=== PATIENT | female | born 1960 | race Hispanic/Latino ===

== ENCOUNTER 2017-05-05 09:58 | Inpatient (IN) | payer MEDICAID ==
[2017-05-05] MEDS ORDERED: Vancomycin 1gm in NS 250ml 1 GM/250 ML BAG IVPB STA (10:46)
--- NOTE | 2017-05-05 10:57 | ED PDOC ---
Arrival/HPI <Alphonse Gentile - Last Filed: 05/05/17 11:17> <Vanessa Blake - Last Filed: 05/05/17 12:36> - General Chief Complaint: Lower Extremity Problem/Injury Time Seen by Provider: 05/05/17 10:25 - History of Present Illness Narrative History of Present Illness (Text): 05/05/17 10:50 This is a 56 year old female with a past medical history of lymphedema who comes in to [facility] with left leg swelling for approximately two days. The patient states that she was shaving her legs on Friday when she cut herself with the razor. She states afterwards that her leg began to swell and the that it began to "feel warm". She reports putting some Neosporyn on the cut but denies it improving the symptoms. The patient reports nausea, vomiting, lightheadedness, dizziness and diarrhea in relation to the swelling. The patient denies any chest pain, shortness of breath or any other complaints. (Alphonse Gentile) Past Medical History - Provider Review Nursing Documentation Reviewed: Yes - Infectious Disease Hx of Infectious Diseases: None - Reproductive Menopause: Yes - Hematological/Oncological Hx Blood Disorders: Yes Hx Cancer: Yes (CERVICAL CA) Hx Chemotherapy: Yes Hx Hepatitis C: Yes Other/Comment: RADIATION THERAPY, lymph edema to left leg - Integumentary Hx Dermatological Disorder: No - Musculoskeletal/Rheumatological Hx Musculoskeletal Disorders: Yes Other/Comment: SCOLIOSIS - Psychiatric Hx Substance Use: No - Surgical History Hx Musculoskeletal Surgery: Yes (BACK JORDY INSERTION) Other/Comment: CERVICAL SEED RADIATION IMPLANT - Anesthesia Hx Anesthesia: Yes Hx Anesthesia Reactions: Yes (DR ANABELA WEEKS) Hx Malignant Hyperthermia: No <Alphonse Gentile - Last Filed: 05/05/17 11:17> Family/Social History - Physician Review Nursing Documentation Reviewed: Yes Smoking Status: Never Smoked Hx Alcohol Use: No Hx Substance Use: No <Alphonse Gentile - Last Filed: 05/05/17 11:17> Family/Social History: No Known Family HX <Vanessa Blake - Last Filed: 05/05/17 12:36> Allergies/Home Meds <Alphonse Gentile - Last Filed: 08/14/17 11:17> <Vanessa Blake - Last Filed: 05/05/17 12:36> Allergies/Adverse Reactions: Allergies No Known Allergies Allergy (Verified 04/04/16 10:33) Home Medications: Home Meds Medication Instructions Recorded Confirmed No Known Home Med 04/04/16 05/05/17 Review of Systems - Physician Review All systems were reviewed & negative as marked: Yes - Review of Systems Constitutional: Fevers. absent: Fatigue, Weight Change Eyes: Normal. absent: Vision Changes, Eye Pain ENT: Normal. absent: Hearing Changes, Sore Throat, Rhinorrhea Respiratory: Normal. absent: SOB, Cough, Sputum Cardiovascular: Normal. absent: Chest Pain, Palpitations, Syncope Gastrointestinal: Diarrhea, Nausea, Vomiting. absent: Constipation, Hematochezia Skin: Other (Warm left leg reported). absent: Skin Lesions, Laceration, Abscess Neurological: Dizziness. absent: Headache, Facial Droop Endocrine: absent: Polyuria, Polydipsia Hemo/Lymphatic: Normal. absent: Easy Bleeding, Easy Bruising Psychiatric: Normal. absent: Anxiety, Depression <Alphonse Gentile - Last Filed: 05/05/17 11:17> Physical Exam Temperature: Afebrile Blood Pressure: Normal Pulse: Tachycardic Respiratory Rate: Normal Appearance: Positive for: Well-Appearing, Non-Toxic, Comfortable Pain Distress: None Mental Status: Positive for: Alert and Oriented X 3 - Systems Exam Head: Present: Atraumatic, Normocephalic Pupils: Present: PERRL Extroacular Muscles: Present: EOMI Conjunctiva: Present: Normal Mouth: Present: Moist Mucous Membranes, Dry Neck: Present: Normal Range of Motion. No: JVD, Lymphadenopathy Respiratory/Chest: Present: Clear to Auscultation, Good Air Exchange. No: Respiratory Distress, Accessory Muscle Use Cardiovascular: Present: Regular Rate and Rhythm, Normal S1, S2, Tachycardic. No: Murmurs, Bradycardic Abdomen: Present: Normal Bowel Sounds. No: Tenderness, Distention, Rebound, Guarding Back: Present: Normal Inspection Upper Extremity: Present: Normal Inspection. No: Cyanosis, Edema, Erythema Lower Extremity: Present: Edema (left leg up to the left groin area.), Swelling (left leg swollen), Temperature Abnormalties (left leg is warmer in comparison to the right). No: CALF TENDERNESS Neurological: Present: CN II-XII Intact, Speech Normal Skin: Present: Warm (on the left leg), Dry. No: Rashes Psychiatric: Present: Alert, Oriented x 3, Normal Insight <Alphonse Gentile - Last Filed: 05/05/17 11:17> Medical Decision Making <Alphonse Gentile - Last Filed: 05/05/17 11:17> <Vanessa Blake - Last Filed: 05/05/17 12:36> ED Course and Treatment: 05/05/17 11:05 Patient came into [facility] complaining of left leg swelling and warmth for two days. Labs were ordered including blood dx, cbc w/diff, cmp, and u/s of left lower extremity. Patient will be re-evaluated once lab work returns. Patient was given 1gm Vancomycin. Patient PMD is Dr. Mishra. Patient is to be admitted for inpatient treatment. (Alphonse Gentile) 05/05/17 11:18 In agreement with resident note, which includes further HPI details. Patient was seen and evaluated with resident, came up with plan and treatment together. Leg has significant warmth and erythema, consistent with limb threatening cellulitis. DVT study negative. Spoke to hospitalist, Dr. Cornejo, who covers for Dr. Mishra and admit to med/sx for IV abx for cellulitis. (Vanessa Blake) - Lab Interpretations Lab Results: 05/05/17 11:28 05/05/17 11:28 Lab Results 05/05/17 11:28: Sodium 136, Potassium 4.1, Chloride 102, Carbon Dioxide 25, Anion Gap 13, BUN 22 H, Creatinine 0.7, Est GFR ( Amer) > 60, Est GFR ( Non-Af Amer) > 60, Random Glucose 72, Calcium 8.9, Total Bilirubin 1.2, AST 28, ALT 26, Alkaline Phosphatase 57, Total Protein 7.1, Albumin 3.9, Globulin 3.2, Albumin/Globulin Ratio 1.2 05/05/17 11:28: WBC 10.0, RBC 4.80, Hgb 14.8, Hct 41.6, MCV 86.7, MCH 30.8, MCHC 35.6, RDW 13.7, Plt Count 166, MPV 10.8, Gran % 94.6 H, Lymph % (Auto) 2.6 L, [place] % (Auto) 2.8, Eos % (Auto) 0.0 L, Baso % (Auto) 0.0, Gran # 9.47 H, Lymph # 0.3 L, [place] # 0.3, Eos # 0.0, Baso # 0.00 - RAD Interpretation Radiology Orders: 05/05/17 10:49 DUPLEX LOWER EXTRM VEIN LEFT [US] Stat - Medication Orders Current Medication Orders: Sodium Chloride (Sodium Chloride 0.9%) 1,000 mls @ 999 mls/hr IV .Q1H1M STA Stop: 05/05/17 13:28 Discontinued Medications Vancomycin HCl (Vancomycin 1gm) 1 gm in 250 mls @ 167 mls/hr IVPB STAT STA PRN Reason: Protocol Stop: 05/05/17 12:15 Last Admin: 05/05/17 11:27 Dose: 167 mls/hr - PA / [employer] / Resident Statement / has reviewed & agrees with the documentation as recorded. / has examined the patient and agrees with the treatment plan. <Alphonse Gentile - Last Filed: 05/05/17 11:17> - Scribe Statement The provider has reviewed the documentation as recorded by the Scribe <Vanessa Blake - Last Filed: 05/05/17 12:36> - Scribe Statement 05/05/2017 Caitie Felipe Provider Scribe Attestation: All medical record entries made by the Scribe were at my direction and personally dictated by me. I have reviewed the chart and agree that the record accurately reflects my personal performance of the history, physical exam, medical decision making, and the department course for this patient. I have also personally directed, reviewed, and agree with the discharge instructions and disposition. (Vanessa Blake) Disposition/Present on Arrival - Present on Arrival Any Indicators Present on Arrival: No History of DVT/PE: No History of Uncontrolled Diabetes: No Urinary Catheter: No History of Decub. Ulcer: No History Surgical Site Infection Following: None - Disposition Have Diagnosis and Disposition been Completed?: Yes Disposition Time: 10:50 Patient Plan: Admission <Alphonse Gentile - Last Filed: 05/05/17 11:17> - Present on Arrival Any Indicators Present on Arrival: No - Disposition Have Diagnosis and Disposition been Completed?: Yes Patient Plan: Admission <Vanessa Blake - Last Filed: 05/05/17 12:36> - Disposition Diagnosis: Cellulitis Disposition: Transfer [facility] Patient Problems: Current Active Problems Problem Status Onset Cellulitis Acute Condition: FAIR Discharge Instructions (ExitCare): Cellulitis (ED) Referrals: Arias Mishra MD [Primary Care Provider] - Follow up with primary Forms: Orate (Amharic)
[2017-05-05 11:31] LABS: GRAN # 9.47 (1.4-6.5); GRAN % 94.6 % (50.0-68.0); HEMOGLOBIN 14.8 g/dL (12.0-16.0); LYMPH # 0.3 (1.2-3.4); LYMPH % 2.6 % (22.0-35.0); MEAN CELL VOLUME 86.7 fl (80.0-105.0); MEAN CORPUSCULAR HEMOGLOBIN 30.8 pg (25.0-35.0); MEAN CORPUSCULAR HGB CONC 35.6 g/dl (31.0-37.0); MEAN PLATELET VOLUME 10.8 fl (7.0-11.0); MONO # 0.3 (0.1-0.6); MONO % 2.8 % (1.0-6.0); PLATELET COUNT 166 10^3/uL (120.0-450.0); RED CELL DISTRIBUTION WIDTH 13.7 % (11.5-14.5)
[2017-05-05 11:44] LABS: ALB/GLOB RATIO 1.2 (1.1-1.8); ALBUMIN 3.9 g/dL (3.0-4.8); ALT/SGPT 26 U/L (7-56); AST/SGOT 28 U/L (15-39); BLOOD UREA NITROGEN 22 mg/dL (7-21); CALCIUM 8.9 mg/dL (8.4-10.5); GFR AFRICAN-AMERICAN > 60; GFR NON-AFRICAN AMERICAN > 60
[2017-05-05] MEDS ORDERED: Sodium Chloride 0.9% 1,000 ML IV STA (12:28)
[2017-05-05] MEDS: Vancomycin 1gm in NS 250ml 1 GM/250 ML BAG IVPB SCH (13:53)
--- NOTE | 2017-05-05 15:26 | CP.PCM.HP ---
<WANDA QUISPE - Last Filed: 05/05/17 15:47> History of Present Illness - History of Present Illness History of Present Illness: CC: LLE swelling, pain, erythema Pt is a 56 year old female with a known history of cervical CA treated 5 years ago and chronic LLE lymphedema, who reports 2 day history of redness, pain, and warmth to the entire left leg. Pt states that 4 days ago, she cut her leg in 3 places while shaving, and initially applied neosporin, however, yesterday she noticed the onset of her current complaints. Pt also c/o associated numbness/ tingling secondary to lymphedema of the LLE. Pt states that he LLE edema has been even worse in the past, but without pain and erythema. Yesterday, she took a dose of Motrin but was concerned when symptoms persisted today, prompting hospital visit. She states that she usually ambulates without difficulty, but has had increased pain to the LLE making it difficult to walk over the past 2 days. Patient reports history of cellulitis in the past. She additionally reports that yesterday, she had subjective fever, chills, nausea, 3 episodes of vomiting, and a loose bowel movement. Pt denied recent illness or sick contacts , dysuria, pyuria, back pain, constipation, abdominal pain, CP, or SOB. PMHx: Cervical CA 5 years ago treated with chemotherapy & radiation, hepatitis C. Denies DM, HTN, hypercholesterolemia PSHx: Abdominal lymph node resection Medication: None Allergies: NKDA, seasonal Family history: DM, HTN, asthma Social: - former smoker (last smoked 12 years ago) - recovering alcoholic - no recreational drugs - decreased appetite x 2 days - unemployed - lives in [place] with her 2 children Present on Admission - Present on Admission Any Indicators Present on Admission: No Review of Systems - Review of Systems All systems: reviewed and no additional remarkable complaints except (12 point ROS negative other than what is stated in HPI) Past Patient History - Infectious Disease Hx of Infectious Diseases: None - Past Medical History & Family History Past Medical History?: Yes - Past Social History Smoking Status: Never Smoked - HEMATOLOGICAL/ONCOLOGICAL Hx Blood Disorders: Yes Hx Cancer: Yes (CERVICAL CA) Hx Chemotherapy: Yes Hx Hepatitis C: Yes Other/Comment: RADIATION THERAPY, lymph edema to left leg - INTEGUMENTARY Hx Dermatological Problems: No - MUSCULOSKELETAL/RHEUMATOLOGICAL Hx Musculoskeletal Disorders: Yes Other/Comment: SCOLIOSIS - PSYCHIATRIC Hx Substance Use: No - SURGICAL HISTORY Hx Musculoskeletal Surgery: Yes (BACK JORDY INSERTION) Other/Comment: CERVICAL SEED RADIATION IMPLANT - ANESTHESIA Hx Anesthesia: Yes Hx Anesthesia Reactions: Yes (DR PEÑALOZA AWARE) Hx Malignant Hyperthermia: No Meds Allergies/Adverse Reactions: Allergies Allergy/AdvReac Type Severity Reaction Status Date / Time No Known Allergies Allergy Verified 04/04/16 10:33 Physical Exam - Constitutional Appears: No Acute Distress - Head Exam Head Exam: ATRAUMATIC, NORMOCEPHALIC - Eye Exam Eye Exam: EOMI, PERRL - ENT Exam ENT Exam: Mucous Membranes Moist - Neck Exam Neck exam: Positive for: Full Rom. Negative for: Lymphadenopathy, Tenderness, Thyromegaly - Respiratory Exam Respiratory Exam: Clear to Auscultation Bilateral. absent: Rales, Rhonchi, Wheezes - Cardiovascular Exam Cardiovascular Exam: RRR. absent: Diastolic murmur, Gallop, Rubs, Systolic Murmur - GI/Abdominal Exam GI & Abdominal Exam: Soft. absent: Distended, Firm, Guarding, Rebound, Rigid, Tenderness - Extremities Exam Extremities exam: Positive for: full ROM, pedal edema (Edema present in entire left leg from inguinal region to foot. 2+/4), tenderness (minor tenderness throughout left LE, with erythema and palpable hyperthermia of LLE), pedal pulses present (faint left DP pulse) Additional comments: 1 mm lesion on LLE, pt states from shaving - Neurological Exam Neurological exam: Alert, CN II-XII Intact, Oriented x3 - Psychiatric Exam Psychiatric exam: Normal Affect - Skin Skin Exam: Dry, Erythema, Warm Results - Vital Signs Recent Vital Signs: Last Vital Signs Temp 98.7 F 05/05/17 10:11 Pulse 88 05/05/17 13:57 Resp 18 05/05/17 13:57 BP 122/88 05/05/17 13:57 Pulse Ox 98 05/05/17 13:57 - Labs Result Diagrams: 05/05/17 11:28 05/05/17 11:28 Assessment & Plan - Assessment and Plan (Free Text) Assessment: 56 yo female with PMHx of cervical CA treated with chemo and radiation and chronic LLE lymphedema will be admitted for evaluation and treatment for LLE cellulitis. Plan: 1. Cellulitis, LLE - IV Cefepime and Vancomycin - Zofran for nausea - Motrin for pain - Monitor wbc - Elevate affected extremity - Consider ID consult if symptoms do not improve 2. GI PPx - Pepcid Pt was seen and discussed in detail with Dr. Rothman. <Chris Rothman - Last Filed: 05/05/17 16:54> Results - Vital Signs Recent Vital Signs: Last Vital Signs Temp 101.1 F H 05/05/17 16:04 Pulse 68 05/05/17 16:04 Resp 18 05/05/17 16:04 BP 87/46 L 05/05/17 16:04 Pulse Ox 98 05/05/17 13:57 - Labs Result Diagrams: 05/05/17 11:28 05/05/17 11:28 Attending/Attestation - Attestation I have personally seen and examined this patient.: Yes I have fully participated in the care of the patient.: Yes I have reviewed all pertinent clinical information: Yes Notes (Text): 05/05/17 16:52 attending note; Patient seen and examined with resident. Patient is a 56 year old female with a known history of cervical CA treated 5 years ago and chronic LLE lymphedema, hepatitis C treated is Admitted with left lower extremity Cellulitis. continue IV vancomycin and cefepime. monitor for clinical improvement. Elevate the left lower extremity. chronic lymphedema; ultrasound is negative for DVT. upon discharge the patient will follow-with PMD Dr. Mishra.
[2017-05-05] MEDS: Cefepime IV 2 gm in NS 2 GM/100 ML BAG IVPB SCH ×2 (16:44→22:07)
[2017-05-05 16:56] VITALS: BMI 32.9
[2017-05-05] MEDS ORDERED: Pneumococcal 23-Valent Vaccine IM ONE (16:56)
--- NOTE | 2017-05-05 18:46 | US ---
PROCEDURE: Left lower extremity venous US HISTORY: Leg pain and swelling. Evaluate for DVT. PHYSICIAN(S): Otis Ortiz MD. TECHNIQUE: Duplex sonography and color-flow Doppler with graded compression were used to evaluate the deep venous system of the left lower extremity. The tibial veins were not adequately visualized due to edema and body habitus FINDINGS: The visualized deep venous system of the left lower extremity is sonographically normal and compressible. Normal wave forms and augmentation are seen. There is no sonographic evidence for deep venous thrombosis in the visualized segments of the left lower extremity. IMPRESSION: 1. No sonographic evidence for deep venous thrombosis in the visualized segments of the left lower extremity. 2. Limited study.
[2017-05-06] MEDS: Vancomycin 1gm in NS 250ml 1 GM/250 ML BAG IVPB SCH ×2 (05:00→13:30)
[2017-05-06 07:41] LABS: HEMOGLOBIN 11.9 g/dL (12.0-16.0); MEAN CELL VOLUME 86.6 fl (80.0-105.0); MEAN CORPUSCULAR HEMOGLOBIN 29.5 pg (25.0-35.0); MEAN PLATELET VOLUME 10.9 fl (7.0-11.0); RBC 4.04 10^6/uL (3.5-6.1); RED CELL DISTRIBUTION WIDTH 13.9 % (11.5-14.5); WHITE BLOOD COUNT 7.1 10^3/ul (4.5-11.0)
[2017-05-06 07:58] LABS: ALB/GLOB RATIO 1.1 (1.1-1.8); ALT/SGPT 25 U/L (7-56); AST/SGOT 21 U/L (15-39); BLOOD UREA NITROGEN 19 mg/dL (7-21); CALCIUM 8.3 mg/dL (8.4-10.5); GFR AFRICAN-AMERICAN > 60; GFR NON-AFRICAN AMERICAN > 60; MAGNESIUM 1.8 mg/dL (1.7-2.2)
[2017-05-06] MEDS ORDERED: Potassium Chloride 20 mEq ER Tab PO STA (08:54)
[2017-05-06] MEDS: Cefepime IV 2 gm in NS 2 GM/100 ML BAG IVPB SCH ×2 (10:38→22:01)
[2017-05-06] MEDS: Potassium & Sodium Phosphate PO SCH ×2 (10:39→18:02)
--- NOTE | 2017-05-06 11:39 | CP.PCM.CON ---
History of Present Illness - History of Present Illness History of Present Illness: 56 year old female with PMH of cervical cancer S/P chemotherapy and radiation, chronic left lower extremity lymphedema, history of hepatitis C came in to [facility] complaining of increasing left lower extremity pain and swelling, with difficulty ambulating. She does not recall traumatizing her left leg. She denies animal contacts, no insect bites, no walking barefoot on soil, no soaking her feet in water. She also denies fever or chills, no nausea or vomiting, no chest pain, no SOB, no headache or dizziness, no dysuria, no diarrhea. Infectious Diseases consult is requested to further evaluate and manage. CC: LLE swelling, pain, erythema Pt is a 56 year old female with a known history of cervical CA treated 5 years ago and chronic LLE lymphedema, who reports 2 day history of redness, pain, and warmth to the entire left leg. Pt states that 4 days ago, she cut her leg in 3 places while shaving, and initially applied neosporin, however, yesterday she noticed the onset of her current complaints. Pt also c/o associated numbness/ tingling secondary to lymphedema of the LLE. Pt states that he LLE edema has been even worse in the past, but without pain and erythema. Yesterday, she took a dose of Motrin but was concerned when symptoms persisted today, prompting hospital visit. She states that she usually ambulates without difficulty, but has had increased pain to the LLE making it difficult to walk over the past 2 days. Patient reports history of cellulitis in the past. She additionally reports that yesterday, she had subjective fever, chills, nausea, 3 episodes of vomiting, and a loose bowel movement. Pt denied recent illness or sick contacts , dysuria, pyuria, back pain, constipation, abdominal pain, CP, or SOB. PMHx: Cervical CA 5 years ago treated with chemotherapy & radiation, hepatitis C. Denies DM, HTN, hypercholesterolemia PSHx: Abdominal lymph node resection Medication: None Allergies: NKDA, seasonal Family history: DM, HTN, asthma Social: - former smoker (last smoked 12 years ago) - recovering alcoholic - no recreational drugs - decreased appetite x 2 days - unemployed - lives in [place] with her 2 children Review of Systems - Review of Systems All systems: reviewed and no additional remarkable complaints except (as per HPI ) Past Patient History - Infectious Disease Hx of Infectious Diseases: None - Past Medical History & Family History Past Medical History?: Yes - Past Social History Smoking Status: Never Smoked - CARDIAC Hx Peripheral Edema: Yes (lle +4 pitting) - HEMATOLOGICAL/ONCOLOGICAL Hx Blood Disorders: Yes Hx Cancer: Yes (CERVICAL CA dx 02/2012) Hx Chemotherapy: Yes Hx Hepatitis C: Yes Other/Comment: had regular and high dose radiation for cervical ca, developed lymphadema to lle 12/2012 - INTEGUMENTARY Hx Dermatological Problems: No Other/Comment: redness warmth +4 edema from left groin down entire leg and foot pt c/o nicked herself shaving her legs 3x's went to [place] with her children the next day did not wrap leg, cellulitis since yesterday 05/04/17, skin tag to bottom left ft, small 0.5cm dry red wound r knee - MUSCULOSKELETAL/RHEUMATOLOGICAL Hx Musculoskeletal Disorders: Yes (can't bend hands all the way) Hx Falls: No Other/Comment: SCOLIOSIS - GASTROINTESTINAL Hx Gastrointestinal Disorders: Yes (obese) - PSYCHIATRIC Hx Substance Use: No - SURGICAL HISTORY Hx Musculoskeletal Surgery: Yes (BACK JORDY INSERTION) Other/Comment: CERVICAL SEED RADIATION IMPLANT pt denies seed implant, back sx with jordy insertion for scoliosis - ANESTHESIA Hx Anesthesia: Yes Hx Anesthesia Reactions: Yes (DR PEÑALOZA AWARE) Hx Malignant Hyperthermia: No Meds Allergies/Adverse Reactions: Allergies Allergy/AdvReac Type Severity Reaction Status Date / Time No Known Allergies Allergy Verified 04/04/16 10:33 - Medications Medications: Current Medications Famotidine (Pepcid) 40 mg PO HS KALPANA Cefepime HCl (Maxipime 2gm) 2 gm in 100 mls @ 100 mls/hr IVPB Q12 KALPANA PRN Reason: Protocol Stop: 05/10/17 13:46 Last Admin: 05/06/17 10:38 Dose: 100 mls/hr Vancomycin HCl (Vancomycin 1gm) 1 gm in 250 mls @ 167 mls/hr IVPB Q12H KALPANA PRN Reason: Protocol Last Admin: 05/06/17 05:00 Dose: 167 mls/hr Ibuprofen (Motrin Tab) 400 mg PO Q6H PRN PRN Reason: Pain, Mild (1-3) Last Admin: 05/06/17 05:04 Dose: 400 mg Ondansetron HCl (Zofran Inj) 4 mg IVP Q6H PRN PRN Reason: Nausea/Vomiting Last Admin: 05/05/17 18:25 Dose: 4 mg Potassium Phos/Sodium Phos (Neutra-Phos) 1 pkt PO ACTID KALPANA Stop: 05/07/17 00:01 Last Admin: 05/06/17 10:39 Dose: 1 pkt Physical Exam - Constitutional Appears: Non-toxic, No Acute Distress - Head Exam Head Exam: NORMAL INSPECTION - ENT Exam ENT Exam: Mucous Membranes Moist - Neck Exam Neck exam: Negative for: Lymphadenopathy, Meningismus - Respiratory Exam Respiratory Exam: Decreased Breath Sounds - Cardiovascular Exam Cardiovascular Exam: +S1, +S2 - GI/Abdominal Exam GI & Abdominal Exam: Soft. absent: Tenderness - Extremities Exam Additional comments: left lower extremity swelling with some anterior erythema and tenderness Results - Vital Signs Recent Vital Signs: Last Vital Signs Temp 99.6 F 05/06/17 06:00 Pulse 89 05/06/17 06:00 Resp 20 05/06/17 06:00 BP 97/48 L 05/06/17 06:00 Pulse Ox 94 L 05/06/17 06:00 - Labs Result Diagrams: 05/06/17 07:00 05/06/17 07:00 Labs: Laboratory Results - last 24 hr 05/06/17 05/06/17 07:00 07:00 WBC 7.1 D RBC 4.04 Hgb 11.9 L D Hct 35.0 L MCV 86.6 MCH 29.5 MCHC 34.0 RDW 13.9 Plt Count 135 MPV 10.9 Sodium 136 Potassium 2.9 L* D Chloride 105 Carbon Dioxide 23 Anion Gap 11 BUN 19 Creatinine 0.7 Est GFR ( Amer) > 60 Est GFR (Non-Af Amer) > 60 Random Glucose 97 Calcium 8.3 L Phosphorus 1.8 L Magnesium 1.8 Total Bilirubin 0.8 AST 21 ALT 25 Alkaline Phosphatase 68 Total Protein 5.8 Albumin 3.0 Globulin 2.8 Albumin/Globulin Ratio 1.1 Assessment & Plan - Assessment and Plan (Free Text) Plan: Assessment Left lower extremity non-purulent cellulitis in a patient with chronic lymphedema cervical cancer S/P chemotherapy and radiation chronic left lower extremity lymphedema history of hepatitis C Plan Patient started on Vancomycin and Cefepime; doppler U/S did not show DVT will monitor clinical response
--- NOTE | 2017-05-06 15:01 | CP.PCM.PN ---
<WANDA QUISPE - Last Filed: 05/06/17 15:12> Subjective - Date & Time of Evaluation Date of Evaluation: 05/06/17 Time of Evaluation: 14:55 - Subjective Subjective: Medicine Progress Note: Pt seen and examined at bedside. Pt denies any acute overnight events. Pt states that edema is about the same in LLE, but erythema and LLE hyperthermia has improved. Minor tenderness with palpation to LLE. But ambulates in room with minimal discomfort. Pt denies CP, SOB, n/v/d, fever, chills, abdominal pain , or vertigo. Objective - Vital Signs/Intake and Output Vital Signs (last 24 hours): Temp Pulse Resp BP Pulse Ox 99.6 F 89 20 97/48 L 94 L 05/06/17 06:00 05/06/17 06:00 05/06/17 06:00 05/06/17 06:00 05/06/17 06:00 Intake and Output: 05/06/17 05/06/17 06:59 18:59 Intake Total 840 240 Balance 840 240 - Medications Medications: Current Medications Famotidine (Pepcid) 40 mg PO HS [facility] Cefepime HCl (Maxipime 2gm) 2 gm in 100 mls @ 100 mls/hr IVPB Q12 [facility] PRN Reason: Protocol Stop: 05/10/17 13:46 Last Admin: 05/06/17 10:38 Dose: 100 mls/hr Vancomycin HCl (Vancomycin 1gm) 1 gm in 250 mls @ 167 mls/hr IVPB Q12H [facility] PRN Reason: Protocol Last Admin: 05/06/17 05:00 Dose: 167 mls/hr Ibuprofen (Motrin Tab) 400 mg PO Q6H PRN PRN Reason: Pain, Mild (1-3) Last Admin: 05/06/17 05:04 Dose: 400 mg Ondansetron HCl (Zofran Inj) 4 mg IVP Q6H PRN PRN Reason: Nausea/Vomiting Last Admin: 05/05/17 18:25 Dose: 4 mg Potassium Phos/Sodium Phos (Neutra-Phos) 1 pkt PO ACTID [facility] Stop: 05/07/17 00:01 Last Admin: 05/06/17 10:39 Dose: 1 pkt - Labs Labs: 05/06/17 07:00 05/06/17 07:00 - Constitutional Appears: No Acute Distress - Head Exam Head Exam: ATRAUMATIC, NORMOCEPHALIC - Eye Exam Eye Exam: EOMI, PERRL - ENT Exam ENT Exam: Mucous Membranes Moist - Neck Exam Neck Exam: Full ROM. absent: Lymphadenopathy, Tenderness, Thyromegaly - Respiratory Exam Respiratory Exam: Clear to Ausculation Bilateral. absent: Rales, Rhonchi, Wheezes - Cardiovascular Exam Cardiovascular Exam: RRR. absent: Gallop, Rubs, Murmur - GI/Abdominal Exam GI & Abdominal Exam: Soft. absent: Distended, Guarding, Tenderness, Rebound - Extremities Exam Extremities Exam: Full ROM, Tenderness Additional comments: LLE: 2+/4 edema, decreased erythema, decreased hyperthermia from inguinal region to foot, TTP minimal. Pedal pulses present b/l - Neurological Exam Neurological Exam: Alert, Awake, Oriented x3 - Psychiatric Exam Psychiatric exam: Normal Affect, Normal Mood - Skin Skin Exam: Dry, Erythema, Intact, Warm Assessment and Plan - Assessment and Plan (Free Text) Assessment: 56 yo female with PMHx of cervical CA treated with chemo and radiation and chronic LLE lymphedema will be admitted for evaluation and treatment for LLE cellulitis. Plan: 1. Cellulitis, LLE - ID consulted, recs appreciated - Blood cultures negative after 24 hrs - Cont Cefepime and Vancomycin - Zofran for nausea - Motrin for pain - Monitor wbc - Elevate affected extremity 2. Hypokalemia - K 2.9 - K-dur 40 mEq PO - Monitor K, replete as necessary 3. Hypophosphatemia - Phos 1.8 - Neutraphos with meals - Monitor Phos, replete as necessary 4. Chronic Lymphedema - US negative for DVT 5. GI/DVT PPx - Pepcid - Ambulate Pt was seen and discussed in detail with Dr. Rothman. <Chris Rothman - Last Filed: 05/07/17 07:57> Objective - Vital Signs/Intake and Output Vital Signs (last 24 hours): Temp Pulse Resp BP Pulse Ox 100.4 F H 87 20 110/57 L 96 05/06/17 16:30 05/06/17 16:30 05/06/17 16:30 05/06/17 16:30 05/06/17 16:30 Intake and Output: 05/07/17 05/07/17 06:59 18:59 Intake Total 1020 Balance 1020 - Medications Medications: Current Medications Famotidine (Pepcid) 40 mg PO HS [facility]NA Last Admin: 05/06/17 22:19 Dose: 40 mg Cefepime HCl (Maxipime 2gm) 2 gm in 100 mls @ 100 mls/hr IVPB Q12 [facility] PRN Reason: Protocol Stop: 05/10/17 13:46 Last Admin: 05/06/17 22:01 Dose: 100 mls/hr Vancomycin HCl (Vancomycin 1gm) 1 gm in 250 mls @ 167 mls/hr IVPB Q12H [facility] PRN Reason: Protocol Last Admin: 05/07/17 00:51 Dose: 167 mls/hr Ibuprofen (Motrin Tab) 400 mg PO Q6H PRN PRN Reason: Pain, Mild (1-3) Last Admin: 05/06/17 05:04 Dose: 400 mg Ondansetron HCl (Zofran Inj) 4 mg IVP Q6H PRN PRN Reason: Nausea/Vomiting Last Admin: 05/05/17 18:25 Dose: 4 mg Potassium Phos/Sodium Phos (Neutra-Phos) 1 pkt PO ACTID [facility] Stop: 05/08/17 00:01 Last Admin: 05/06/17 18:02 Dose: Not Given - Labs Labs: 05/07/17 07:00 05/06/17 15:55 Attending/Attestation - Attestation I have personally seen and examined this patient.: Yes I have fully participated in the care of the patient.: Yes I have reviewed all pertinent clinical information, including history, physical exam and plan: Yes Notes (Text): 05/07/17 07:56 attending note; Patient seen and examined with resident. Patient is a 56 year old female with a known history of cervical CA treated 5 years ago and chronic LLE lymphedema, hepatitis C treated is Admitted with left lower extremity Cellulitis. on IV vancomycin and cefepime. monitor for clinical improvement. Elevate the left lower extremity. ID evaluation requested. chronic lymphedema; ultrasound is negative for DVT. upon discharge the patient will follow-with PMD Dr. Mishra.
[2017-05-06 16:08] LABS: BLOOD UREA NITROGEN 18 mg/dL (7-21); CALCIUM 8.6 mg/dL (8.4-10.5); GFR AFRICAN-AMERICAN > 60; GFR NON-AFRICAN AMERICAN > 60
[2017-05-07] MEDS: Vancomycin 1gm in NS 250ml 1 GM/250 ML BAG IVPB SCH (00:51)
[2017-05-07 07:42] LABS: HEMOGLOBIN 11.2 g/dL (12.0-16.0); MEAN CELL VOLUME 86.9 fl (80.0-105.0); MEAN CORPUSCULAR HEMOGLOBIN 29.2 pg (25.0-35.0); MEAN CORPUSCULAR HGB CONC 33.6 g/dl (31.0-37.0); MEAN PLATELET VOLUME 10.5 fl (7.0-11.0); RBC 3.83 10^6/uL (3.5-6.1); WHITE BLOOD COUNT 4.4 10^3/ul (4.5-11.0)
[2017-05-07 08:05] LABS: ALBUMIN 2.8 g/dL (3.0-4.8); ALT/SGPT 24 U/L (7-56); AST/SGOT 17 U/L (15-39); BLOOD UREA NITROGEN 14 mg/dL (7-21); CALCIUM 8.1 mg/dL (8.4-10.5); GFR AFRICAN-AMERICAN > 60; GFR NON-AFRICAN AMERICAN > 60
[2017-05-07] MEDS: Potassium & Sodium Phosphate PO SCH ×2 (08:20→13:37)
[2017-05-07 09:09] VITALS: BP 110/61; PULSE 75; RESP 19; TEMP 99.8; O2SAT 94
[2017-05-07] MEDS: Cefepime IV 2 gm in NS 2 GM/100 ML BAG IVPB SCH (09:58)
--- NOTE | 2017-05-07 13:06 | CP.PCM.DIS ---
<WANDA QUISPE - Last Filed: 05/07/17 12:59> Provider - Provider Date of Admission: 05/05/17 12:27 Attending physician: Chris Rothman MD Primary care physician: Arias Mishra MD Consults: Infectious Disease: Alona Time Spent in preparation of Discharge (in minutes): 45 Hospital Course - Lab Results Lab Results: Micro Results 05/05/17 13:40 Blood-Venous Blood Culture - Preliminary NO GROWTH AFTER 24 HOURS 05/05/17 13:40 Blood-Venous Blood Culture - Preliminary NO GROWTH AFTER 24 HOURS Most Recent Lab Values WBC 4.4 10^3/ul (4.5-11.0) L D 05/07/17 07:00 RBC 3.83 10^6/uL (3.5-6.1) 05/07/17 07:00 Hgb 11.2 g/dL (12.0-16.0) L 05/07/17 07:00 Hct 33.3 % (36.0-48.0) L 05/07/17 07:00 MCV 86.9 fl (80.0-105.0) 05/07/17 07:00 MCH 29.2 pg (25.0-35.0) 05/07/17 07:00 MCHC 33.6 g/dl (31.0-37.0) 05/07/17 07:00 RDW 14.0 % (11.5-14.5) 05/07/17 07:00 Plt Count 126 10^3/uL (120.0-450.0) 05/07/17 07:00 MPV 10.5 fl (7.0-11.0) 05/07/17 07:00 Gran % 94.6 % (50.0-68.0) H 05/05/17 11:28 Lymph % (Auto) 2.6 % (22.0-35.0) L 05/05/17 11:28 [place] % (Auto) 2.8 % (1.0-6.0) 05/05/17 11:28 Eos % (Auto) 0.0 % (1.5-5.0) L 05/05/17 11:28 Baso % (Auto) 0.0 % (0.0-3.0) 05/05/17 11:28 Gran # 9.47 (1.4-6.5) H 05/05/17 11:28 Lymph # 0.3 (1.2-3.4) L 05/05/17 11:28 [place] # 0.3 (0.1-0.6) 05/05/17 11:28 Eos # 0.0 (0.0-0.7) 05/05/17 11:28 Baso # 0.00 K/mm3 (0.0-2.0) 05/05/17 11:28 Sodium 138 mmol/L (132-148) 05/07/17 07:00 Potassium 3.7 mmol/L (3.6-5.0) 05/07/17 07:00 Chloride 107 mmol/L (98-107) 05/07/17 07:00 Carbon Dioxide 24 mmol/L (21-33) 05/07/17 07:00 Anion Gap 11 (10-20) 05/07/17 07:00 BUN 14 mg/dL (7-21) 05/07/17 07:00 Creatinine 0.6 mg/dL (0.5-1.4) 05/07/17 07:00 Est GFR ( Amer) > 60 05/07/17 07:00 Est GFR (Non-Af Amer) > 60 05/07/17 07:00 Random Glucose 84 mg/dL (70-110) 05/07/17 07:00 Calcium 8.1 mg/dL (8.4-10.5) L 05/07/17 07:00 Phosphorus 2.2 mg/dL (2.5-4.5) L 05/07/17 07:00 Magnesium 1.8 mg/dL (1.7-2.2) 05/06/17 07:00 Total Bilirubin 0.5 mg/dL (0.2-1.3) 05/07/17 07:00 AST 17 U/L (15-39) 05/07/17 07:00 ALT 24 U/L (7-56) 05/07/17 07:00 Alkaline Phosphatase 58 U/L (38-133) 05/07/17 07:00 Total Protein 5.7 g/dL (5.8-8.3) L 05/07/17 07:00 Albumin 2.8 g/dL (3.0-4.8) L 05/07/17 07:00 Globulin 2.9 gm/dL 05/07/17 07:00 Albumin/Globulin Ratio 1.0 (1.1-1.8) L 05/07/17 07:00 - Hospital Course Hospital Course: Pt is a 56 year old female with a known history of cervical CA treated 5 years ago and chronic LLE lymphedema, who reports 2 day history of redness, pain, and warmth to the entire left leg. Pt states that 4 days ago, she cut her leg in 3 places while shaving, and initially applied neosporin, however, yesterday she noticed the onset of her current complaints. Pt also c/o associated numbness/ tingling secondary to lymphedema of the LLE. Pt states that he LLE edema has been even worse in the past, but without pain and erythema. Yesterday, she took a dose of Motrin but was concerned when symptoms persisted today, prompting hospital visit. She states that she usually ambulates without difficulty, but has had increased pain to the LLE making it difficult to walk over the past 2 days. Patient reports history of cellulitis in the past. She additionally reports that yesterday, she had subjective fever, chills, nausea, 3 episodes of vomiting, and a loose bowel movement. In the ED, labs and imaging were obtained. Labs were unremarkable. Ultrasound of the LLE was negative for DVT. Pt was admitted for IV abx for LLE cellulitis. ID was consulted. Antibiotic recommendations were appreciated. During hospital stay, pt became hypokalemic and hypophosphatemic. K and phos were repleted, which resolved her electrolyte abnormalities. Today, erythema, pain and heat from LLE had greatly improved. ID recommended that pt be discharged home on PO doxycycline and augmentin. Pt denied CP, SOB, n/v/d, abdominal pain, fevers, chills, and vertigo. Discharge Exam - Head Exam Head Exam: ATRAUMATIC, NORMOCEPHALIC - Eye Exam Eye Exam: EOMI, PERRL Pupil Exam: PERRL - ENT Exam ENT Exam: Mucous Membranes Moist - Neck Exam Neck exam: Full Rom - Respiratory Exam Respiratory Exam: Clear to PA & Lateral. absent: Rales, Rhonchi, Wheezes - Cardiovascular Exam Cardiovascular Exam: RRR. absent: Diastolic murmur, Gallop, Rubs, Systolic Murmur - GI/Abdominal Exam GI & Abdominal Exam: Soft. absent: Distended, Guarding, Rebound, Tenderness - Extremities Exam Additional comments: LLE edema 2+/4. Erythema and hyperthermia improved - Neurological Exam Neurological exam: Alert, CN II-XII Intact, Oriented x3 - Psychiatric Exam Psychiatric exam: Normal Affect - Skin Skin Exam: Erythema, Intact, Warm Discharge Plan - Discharge Medications Prescriptions: Amoxicillin/Clavulanate [Augmentin 875 MG-125 MG] 1 tab PO BID #14 tab Doxycycline Monohydrate 100 mg PO BID #14 tablet - Follow Up Plan Condition: FAIR Disposition: HOME/ ROUTINE Instructions: Cellulitis (DC), Cellulitis (GEN) Additional Instructions: - Take Medications as prescribed - Follow up with PMD Dr. Mishra within 2-3 days - Ambulate as tolerated - Keep area of lesion clean - Ok to shower - Avoid swimming pool until leg redness and heat ceases - Return to ED if condition worsens Referrals: Arias Mishra MD [Primary Care Provider] - <Chris Rothman - Last Filed: 05/07/17 15:03> Provider - Provider Date of Admission: 05/05/17 12:27 Attending physician: Chris Rothman MD Primary care physician: Arias Mishra MD Hospital Course - Lab Results Lab Results: Micro Results 05/05/17 13:40 Blood-Venous Blood Culture - Preliminary NO GROWTH AFTER 48 HOURS 05/05/17 13:40 Blood-Venous Blood Culture - Preliminary NO GROWTH AFTER 48 HOURS Most Recent Lab Values WBC 4.4 10^3/ul (4.5-11.0) L D 05/07/17 07:00 RBC 3.83 10^6/uL (3.5-6.1) 05/07/17 07:00 Hgb 11.2 g/dL (12.0-16.0) L 05/07/17 07:00 Hct 33.3 % (36.0-48.0) L 05/07/17 07:00 MCV 86.9 fl (80.0-105.0) 05/07/17 07:00 MCH 29.2 pg (25.0-35.0) 05/07/17 07:00 MCHC 33.6 g/dl (31.0-37.0) 05/07/17 07:00 RDW 14.0 % (11.5-14.5) 05/07/17 07:00 Plt Count 126 10^3/uL (120.0-450.0) 05/07/17 07:00 MPV 10.5 fl (7.0-11.0) 05/07/17 07:00 Gran % 94.6 % (50.0-68.0) H 05/05/17 11:28 Lymph % (Auto) 2.6 % (22.0-35.0) L 05/05/17 11:28 [place] % (Auto) 2.8 % (1.0-6.0) 05/05/17 11:28 Eos % (Auto) 0.0 % (1.5-5.0) L 05/05/17 11:28 Baso % (Auto) 0.0 % (0.0-3.0) 05/05/17 11:28 Gran # 9.47 (1.4-6.5) H 05/05/17 11:28 Lymph # 0.3 (1.2-3.4) L 05/05/17 11:28 [place] # 0.3 (0.1-0.6) 05/05/17 11:28 Eos # 0.0 (0.0-0.7) 05/05/17 11:28 Baso # 0.00 K/mm3 (0.0-2.0) 05/05/17 11:28 Sodium 138 mmol/L (132-148) 05/07/17 07:00 Potassium 3.7 mmol/L (3.6-5.0) 05/07/17 07:00 Chloride 107 mmol/L (98-107) 05/07/17 07:00 Carbon Dioxide 24 mmol/L (21-33) 05/07/17 07:00 Anion Gap 11 (10-20) 05/07/17 07:00 BUN 14 mg/dL (7-21) 05/07/17 07:00 Creatinine 0.6 mg/dL (0.5-1.4) 05/07/17 07:00 Est GFR ( Amer) > 60 05/07/17 07:00 Est GFR (Non-Af Amer) > 60 05/07/17 07:00 Random Glucose 84 mg/dL (70-110) 05/07/17 07:00 Calcium 8.1 mg/dL (8.4-10.5) L 05/07/17 07:00 Phosphorus 2.2 mg/dL (2.5-4.5) L 05/07/17 07:00 Magnesium 1.8 mg/dL (1.7-2.2) 05/06/17 07:00 Total Bilirubin 0.5 mg/dL (0.2-1.3) 05/07/17 07:00 AST 17 U/L (15-39) 05/07/17 07:00 ALT 24 U/L (7-56) 05/07/17 07:00 Alkaline Phosphatase 58 U/L (38-133) 05/07/17 07:00 Total Protein 5.7 g/dL (5.8-8.3) L 05/07/17 07:00 Albumin 2.8 g/dL (3.0-4.8) L 05/07/17 07:00 Globulin 2.9 gm/dL 05/07/17 07:00 Albumin/Globulin Ratio 1.0 (1.1-1.8) L 05/07/17 07:00 Attending/Attestation - Attestation I have personally seen and examined this patient.: Yes I have fully participated in the care of the patient.: Yes I have reviewed all pertinent clinical information, including history, physical exam and plan: Yes Notes (Text): 05/07/17 15:02 attending note; Patient seen and examined with resident. Patient is a 56 year old female with a known history of cervical CA treated 5 years ago and chronic LLE lymphedema, hepatitis C treated is Admitted with left lower extremity Cellulitis. Treated with IV vancomycin and cefepime. Elevate the left lower extremity. ID evaluation appreciated. Improving slowly. Discharge home with doxy and augmentin. chronic lymphedema; ultrasound is negative for DVT. upon discharge the patient will follow-with PMD Dr. Mishra.
--- NOTE | 2017-05-07 18:46 | CP.PCM.PN ---
Subjective - Date & Time of Evaluation Date of Evaluation: 05/07/17 Time of Evaluation: 11:00 - Subjective Subjective: Less leg swelling, no fevers overnight. Objective - Vital Signs/Intake and Output Vital Signs (last 24 hours): Temp Pulse Resp BP Pulse Ox 99.8 F H 75 19 110/61 94 L 05/07/17 06:00 05/07/17 06:00 05/07/17 06:00 05/07/17 06:00 05/07/17 06:00 Intake and Output: 05/07/17 05/07/17 06:59 18:59 Intake Total 1020 Balance 1020 - Medications Medications: Current Medications Famotidine (Pepcid) 40 mg PO HS [facility] Last Admin: 05/06/17 22:19 Dose: 40 mg Cefepime HCl (Maxipime 2gm) 2 gm in 100 mls @ 100 mls/hr IVPB Q12 [facility] PRN Reason: Protocol Stop: 05/10/17 13:46 Last Admin: 05/07/17 09:58 Dose: 100 mls/hr Vancomycin HCl (Vancomycin 1gm) 1 gm in 250 mls @ 167 mls/hr IVPB Q12H [facility] PRN Reason: Protocol Last Admin: 05/07/17 00:51 Dose: 167 mls/hr Ibuprofen (Motrin Tab) 400 mg PO Q6H PRN PRN Reason: Pain, Mild (1-3) Last Admin: 05/06/17 05:04 Dose: 400 mg Ondansetron HCl (Zofran Inj) 4 mg IVP Q6H PRN PRN Reason: Nausea/Vomiting Last Admin: 05/05/17 18:25 Dose: 4 mg Potassium Phos/Sodium Phos (Neutra-Phos) 1 pkt PO ACTID [facility] Stop: 05/08/17 00:01 Last Admin: 05/07/17 08:20 Dose: 1 pkt - Labs Labs: 05/07/17 07:00 05/07/17 07:00 - Constitutional Appears: Non-toxic, No Acute Distress - Head Exam Head Exam: NORMAL INSPECTION - ENT Exam ENT Exam: Mucous Membranes Moist - Neck Exam Neck Exam: absent: Meningismus - Respiratory Exam Respiratory Exam: Decreased Breath Sounds - Cardiovascular Exam Cardiovascular Exam: +S1, +S2 - GI/Abdominal Exam GI & Abdominal Exam: Soft. absent: Tenderness - Extremities Exam Additional comments: decreasing left lower extremity edema Assessment and Plan - Assessment and Plan (Free Text) Plan: Assessment Left lower extremity non-purulent cellulitis in a patient with chronic lymphedema, clinically improving cervical cancer S/P chemotherapy and radiation chronic left lower extremity lymphedema history of hepatitis C Plan on Vancomycin and Cefepime day 2; doppler U/S did not show DVT; blood cx are negative - can change to PO Doxycycline and Augmentin for another 5-7 days
== END 2017-05-07 14:19 | disposition home or self-care (01) | DRG 277 ==
LOC: ED 09:58 → ERH 12:27 → 3RSO 14:17
PROVIDERS: ADMIT Internal Medicine; ATTEND Internal Medicine
DX: L03.116 Cellulitis of left lower limb (principal); E87.6 Hypokalemia; I89.0 Lymphedema, not elsewhere classified; E83.39 Other disorders of phosphorus metabolism; Z92.21 Personal history of antineoplastic chemotherapy; Z87.891 Personal history of nicotine dependence; Z86.19 Personal history of other infectious and parasitic diseases; Z85.41 Personal history of malignant neoplasm of cervix uteri

== ENCOUNTER 2017-07-02 20:30 | Emergency (ER) | payer MEDICAID ==
[2017-07-02 21:37] VITALS: RESP 18; TEMP 98.6; BMI 32.2
--- NOTE | 2017-07-02 21:50 | ED PDOC ---
Arrival/HPI - General Chief Complaint: Lower Extremity Problem/Injury Time Seen by Provider: 07/02/17 21:33 Historian: Patient - History of Present Illness Narrative History of Present Illness (Text): 07/02/17 21:49 Frida Calzada is a 56 year old female, whose past medical history includes cervical cancer, Hepatitis C, cellulitis, and chronic lymphedema, who presents to the Emergency department complaining of worsening left lower extremity swelling since this morning. Patient reports associated redness to the extremity. Patient denies any fever, chills, chest pain, shortness of breath, nausea, vomiting, diarrhea, urinary symptoms, back pain, neck pain, headache, dizziness, or any other complaints. Time/Duration: Other (this morning) Symptom Onset: Gradual Symptom Course: Unchanged Activities at Onset: Light Context: Home Past Medical History - Provider Review Nursing Documentation Reviewed: Yes - Infectious Disease Hx of Infectious Diseases: None - Cardiac Hx Peripheral Edema: Yes (lle +4 pitting) - Hematological/Oncological Hx Blood Disorders: Yes Hx Cancer: Yes (CERVICAL CA dx 02/2012) Hx Chemotherapy: Yes Hx Hepatitis C: Yes Other/Comment: had regular and high dose radiation for cervical ca, developed lymphadema to lle 12/2012 - Integumentary Hx Dermatological Disorder: No Other/Comment: redness warmth +4 edema from left groin down entire leg and foot pt c/o nicked herself shaving her legs 3x's went to [facility] with her children the next day did not wrap leg, cellulitis since yesterday 05/04/17, skin tag to bottom left ft, small 0.5cm dry red wound r knee - Musculoskeletal/Rheumatological Hx Musculoskeletal Disorders: Yes (can't bend hands all the way) Hx Falls: No Other/Comment: SCOLIOSIS - Gastrointestinal Hx Gastrointestinal Disorders: Yes (obese) - Psychiatric Hx Substance Use: No - Surgical History Hx Musculoskeletal Surgery: Yes (BACK JORDY INSERTION) Other/Comment: CERVICAL SEED RADIATION IMPLANT pt denies seed implant, back sx with jordy insertion for scoliosis - Anesthesia Hx Anesthesia: Yes Hx Anesthesia Reactions: Yes (DR PEÑALOZA AWARE) Hx Malignant Hyperthermia: No Family/Social History - Physician Review Nursing Documentation Reviewed: Yes Family/Social History: Unknown Family HX Smoking Status: Never Smoked Hx Alcohol Use: No Hx Substance Use: No Allergies/Home Meds Allergies/Adverse Reactions: Allergies acetaminophen [From Percocet] Adverse Reaction (Verified 07/02/17 21:34) VOMITING oxycodone [From Percocet] Adverse Reaction (Verified 07/02/17 21:34) VOMITING Review of Systems - Physician Review All systems were reviewed & negative as marked: Yes - Review of Systems Constitutional: Normal. absent: Fevers Eyes: Normal ENT: Normal Respiratory: Normal. absent: SOB, Cough Cardiovascular: Normal. absent: Chest Pain Gastrointestinal: Normal. absent: Abdominal Pain, Diarrhea, Nausea, Vomiting Genitourinary Female: Normal. absent: Dysuria, Frequency, Hematuria, Urine Output Changes Musculoskeletal: Normal. absent: Back Pain, Neck Pain Skin: Cellulitis (+left leg swelling and redness) Neurological: Normal. absent: Headache, Dizziness Endocrine: Normal Hemo/Lymphatic: Normal Psychiatric: Normal Physical Exam Vital Signs Reviewed: Yes Vital Signs Temp Pulse Resp BP Pulse Ox 07/02/17 23:44 75 18 125/82 100 07/02/17 21:35 98.6 F 86 18 117/65 96 Temperature: Afebrile Blood Pressure: Normal Pulse: Regular Respiratory Rate: Normal Appearance: Positive for: Well-Appearing, Non-Toxic, Comfortable Pain Distress: None Mental Status: Positive for: Alert and Oriented X 3 - Systems Exam Head: Present: Atraumatic, Normocephalic Pupils: Present: PERRL Extroacular Muscles: Present: EOMI Conjunctiva: Present: Normal Mouth: Present: Moist Mucous Membranes Neck: Present: Normal Range of Motion Respiratory/Chest: Present: Clear to Auscultation, Good Air Exchange. No: Respiratory Distress, Accessory Muscle Use Cardiovascular: Present: Regular Rate and Rhythm, Normal S1, S2. No: Murmurs Abdomen: Present: Normal Bowel Sounds. No: Tenderness, Distention, Peritoneal Signs Back: Present: Normal Inspection Upper Extremity: Present: Normal Inspection. No: Cyanosis, Edema Lower Extremity: Present: NORMAL PULSES, Normal ROM, Erythema (Erythema to left lower extremity), Temperature Abnormalties (Warmth to left lower extremity), Neurovascularly Intact, Capillary Refill < 2 s. No: Edema, CALF TENDERNESS Neurological: Present: GCS=15, CN II-XII Intact, Speech Normal Skin: Present: Warm, Dry, Normal Color. No: Rashes Psychiatric: Present: Alert, Oriented x 3, Normal Insight, Normal Concentration Medical Decision Making ED Course and Treatment: 07/02/17 21:49 Impression: 56 year old female complaining of left lower extremity swelling and redness since this morning. Differential Diagnosis included but are not limited to: cellulitis Plan: -- Cleocin -- Reassess and disposition Prior Visits: Notes and results from previous visits were reviewed. On 05/05/2017, pt was seen in the Emergency department for left leg swelling. Pt was admitted to the hospital for further evaluation. Progress Notes: 07/02/17 23:45 On reevaluation the patient feels better and is in no acute distress. I have discussed the results and plan with the patient, who expresses understanding. Patient given the opportunity to ask question, all questions were answered and there is agreement with the plan to discharge the patient home with prescription for Cleocin. Patient is stable for discharge. Patient was instructed to follow up with physician/clinic in 1-2 days or return if symptoms persist/worsen or new concerning symptoms arise. - Medication Orders Current Medication Orders: Discontinued Medications Clindamycin Phosphate 600 mg/ (Sodium Chloride) 54 mls @ 108 mls/hr IVPB STAT STA PRN Reason: Protocol Stop: 07/02/17 22:18 Last Admin: 07/02/17 22:13 Dose: 108 mls/hr eMAR Start Stop Document 07/02/17 22:13 YP (Rec: 07/02/17 22:13 YP [id number]) Intravenous Solution Start Date 07/02/17 Start Time 22:13 End Date 07/02/17 End time 22:43 Total Infusion Time 30 - Scribe Statement The provider has reviewed the documentation as recorded by the Veda Figueroa Provider Scribe Attestation: All medical record entries made by the Scribmagdalena were at my direction and personally dictated by me. I have reviewed the chart and agree that the record accurately reflects my personal performance of the history, physical exam, medical decision making, and the department course for this patient. I have also personally directed, reviewed, and agree with the discharge instructions and disposition. Disposition/Present on Arrival - Present on Arrival History of DVT/PE: No History of Uncontrolled Diabetes: No Urinary Catheter: No History of Decub. Ulcer: No History Surgical Site Infection Following: None - Disposition Diagnosis: Cellulitis Disposition: HOME/ ROUTINE Disposition Time: 23:45 Discharge Instructions (ExitCare): Cellulitis (ED) Prescriptions: Clindamycin [Cleocin] 300 mg PO QID #40 cap Forms: [employer] ([place])
[2017-07-02 23:46] VITALS: BP 125/82; PULSE 75; O2SAT 100
== END 2017-07-02 23:46 | disposition home or self-care (01) ==
LOC: ED 20:30
DX: L03.116 Cellulitis of left lower limb (principal)

== ENCOUNTER 2017-07-04 10:03 | Inpatient (IN) | payer MEDICAID ==
[2017-07-04 10:10] VITALS: BMI 33.3
[2017-07-04 10:54] LABS: BASO # 0.01 K/mm3 (0.0-2.0); BASO % 0.3 % (0.0-3.0); GRAN # 2.04 (1.4-6.5); GRAN % 67.5 % (50.0-68.0); HEMATOCRIT 41.3 % (36.0-48.0); LYMPH # 0.6 (1.2-3.4); LYMPH % 19.9 % (22.0-35.0); MEAN CELL VOLUME 87.7 fl (80.0-105.0); MEAN CORPUSCULAR HEMOGLOBIN 29.9 pg (25.0-35.0); MEAN CORPUSCULAR HGB CONC 34.1 g/dl (31.0-37.0); MONO # 0.3 (0.1-0.6); MONO % 11.3 % (1.0-6.0); RED CELL DISTRIBUTION WIDTH 13.4 % (11.5-14.5)
--- NOTE | 2017-07-04 11:07 | ED PDOC ---
Arrival/HPI - General Chief Complaint: Lower Extremity Problem/Injury Time Seen by Provider: 07/04/17 10:12 Historian: Patient - History of Present Illness Narrative History of Present Illness (Text): 07/04/17 11:03 56-year-old female with history of lymphedema presents today for reevaluation of left lower leg erythema. Patient states she was seen in the emergency room 2 days ago for redness and swelling to the left leg. Patient states she was discharged home on clindamycin. Patient states she presents today because she promised the doctor 2 days ago that she would return for reevaluation. Patient states she is feeling much better, but there is still redness. States the swelling has decreased. Patient states she is taking the antibiotics as prescribed. She denies fevers or chills. Past Medical History - Provider Review Nursing Documentation Reviewed: Yes - Travel History Have you recently traveled outside [place] w/in the past 3 mons?: No - Infectious Disease Hx of Infectious Diseases: None - Cardiac Hx Peripheral Edema: Yes (lle +4 pitting) - Hematological/Oncological Hx Blood Disorders: Yes Hx Cancer: Yes (CERVICAL CA dx 02/2012) Hx Chemotherapy: Yes Hx Hepatitis C: Yes Other/Comment: had regular and high dose radiation for cervical ca, developed lymphadema to e 12/2012 - Integumentary Hx Dermatological Disorder: No Other/Comment: redness warmth +4 edema from left groin down entire leg and foot pt c/o nicked herself shaving her legs 3x's went to [facility] with her children the next day did not wrap leg, cellulitis since yesterday 05/04/17, skin tag to bottom left ft, small 0.5cm dry red wound r knee - Musculoskeletal/Rheumatological Hx Musculoskeletal Disorders: Yes (can't bend hands all the way) Hx Falls: No Other/Comment: SCOLIOSIS - Gastrointestinal Hx Gastrointestinal Disorders: Yes (obese) - Psychiatric Hx Substance Use: No - Surgical History Hx Musculoskeletal Surgery: Yes (BACK JORDY INSERTION) Other/Comment: CERVICAL SEED RADIATION IMPLANT pt denies seed implant, back sx with jordy insertion for scoliosis - Anesthesia Hx Anesthesia: Yes Hx Anesthesia Reactions: Yes (DR PEÑALOZA AWARE) Hx Malignant Hyperthermia: No Family/Social History - Physician Review Nursing Documentation Reviewed: Yes Family/Social History: Unknown Family HX Smoking Status: Never Smoked Hx Alcohol Use: No Hx Substance Use: No Allergies/Home Meds Allergies/Adverse Reactions: Allergies acetaminophen [From Percocet] Adverse Reaction (Verified 07/02/17 21:34) VOMITING oxycodone [From Percocet] Adverse Reaction (Verified 07/02/17 21:34) VOMITING Review of Systems - Review of Systems Constitutional: absent: Fatigue, Fevers Respiratory: absent: SOB, Cough Cardiovascular: absent: Chest Pain, Palpitations Gastrointestinal: absent: Abdominal Pain, Nausea, Vomiting Genitourinary Female: absent: Dysuria, Frequency Musculoskeletal: Arthralgias Skin: Cellulitis Neurological: absent: Headache, Dizziness Psychiatric: absent: Anxiety, Depression Physical Exam Vital Signs Reviewed: Yes Vital Signs Temp Pulse Resp BP Pulse Ox 07/04/17 12:04 68 18 110/68 98 07/04/17 11:00 71 18 106/65 98 07/04/17 10:14 97.7 F 76 18 104/64 98 Temperature: Afebrile Blood Pressure: Normal Pulse: Regular Respiratory Rate: Normal Appearance: Positive for: Well-Appearing, Non-Toxic, Comfortable Pain Distress: None Mental Status: Positive for: Alert and Oriented X 3 - Systems Exam Head: Present: Atraumatic Mouth: Present: Moist Mucous Membranes Neck: Present: Normal Range of Motion Respiratory/Chest: Present: Clear to Auscultation, Good Air Exchange. No: Respiratory Distress, Accessory Muscle Use Cardiovascular: Present: Regular Rate and Rhythm, Normal S1, S2. No: Murmurs Abdomen: No: Tenderness Back: Present: Normal Inspection Lower Extremity: Present: NORMAL PULSES, Normal ROM, Swelling (+ lymphedema to left lower leg with erythema; + warmth. full rom. ), Erythema, Neurovascularly Intact, Capillary Refill < 2 s. No: CALF TENDERNESS, Tenderness, Temperature Abnormalties Neurological: Present: GCS=15 Skin: Present: Warm, Dry, Normal Color. No: Rashes Psychiatric: Present: Alert, Oriented x 3 Medical Decision Making ED Course and Treatment: 07/04/17 11:13 pt non toxic well appearing; no distress. stable vitals. cbc wnl cmp wnl blood cultures pending venous duplex left leg; no dvt, non visualized calf veins. vanco and zosyn ordered IV. case discussed with dr. Riki waggoner. covering for dr. garcia; accepts admission to med/surg for cellulitis of left leg with failure of outpatient abx. impression; cellulitis admit to med/surg - Lab Interpretations Lab Results: 07/04/17 10:46 07/04/17 10:46 Lab Results 07/04/17 10:46: WBC 3.0 L D, RBC 4.71, Hgb 14.1 D, Hct 41.3, MCV 87.7, MCH 29.9 , MCHC 34.1, RDW 13.4, Plt Count 172, MPV 10.0, Gran % 67.5, Lymph % (Auto) 19.9 L, Kay % (Auto) 11.3 H, Eos % (Auto) 1.0 L, Baso % (Auto) 0.3, Gran # 2.04 , Lymph # 0.6 L, Kay # 0.3, Eos # 0.0, Baso # 0.01 07/04/17 10:46: Sodium 141, Potassium 4.9, Chloride 105, Carbon Dioxide 29, Anion Gap 12, BUN 14, Creatinine 0.6 L, Est GFR ( Amer) > 60, Est GFR ( Non-Af Amer) > 60, Random Glucose 96, Calcium 8.9, Total Bilirubin 0.7, AST 27, ALT 27, Alkaline Phosphatase 62, Total Protein 7.2, Albumin 3.9, Globulin 3.2, Albumin/Globulin Ratio 1.2 - RAD Interpretation Radiology Orders: 07/04/17 10:26 DUPLEX LOWER EXTRM VEIN LEFT [US] Stat Disposition/Present on Arrival - Present on Arrival Any Indicators Present on Arrival: No History of DVT/PE: No History of Uncontrolled Diabetes: No Urinary Catheter: No History of Decub. Ulcer: No History Surgical Site Infection Following: None - Disposition Have Diagnosis and Disposition been Completed?: Yes Diagnosis: Cellulitis Disposition: HOSPITALIZED Disposition Time: 11:58 Patient Plan: Discharge Patient Problems: Current Active Problems Problem Status Onset Cellulitis Acute Condition: GOOD Discharge Instructions (ExitCare): Cellulitis (ED) Additional Instructions: Continue antibiotics as prescribed Follow-up with primary care physician within the next 2 days Return immediately if symptoms worsen persist or if new symptoms develop, and high fevers, increasing pain, increasing redness, increasing swelling or if any other concerning symptoms develop Referrals: Spenser Garcia MD [Primary Care Provider] - Follow up with primary Forms: Cherry Bird (Moroccan)
[2017-07-04 11:09] LABS: ALB/GLOB RATIO 1.2 (1.1-1.8); ALKALINE PHOSPHATASE 62 U/L (38-126); ALT/SGPT 27 U/L (7-56); AST/SGOT 27 U/L (14-36); BILIRUBIN,TOTAL 0.7 mg/dL (0.2-1.3); BLOOD UREA NITROGEN 14 mg/dL (7-21); CALCIUM 8.9 mg/dL (8.4-10.5); CARBON DIOXIDE 29 mmol/L (21-33); CHLORIDE 105 mmol/L (98-107); GFR AFRICAN-AMERICAN > 60; GLUCOSE,RANDOM 96 mg/dL (70-110); POTASSIUM 4.9 mmol/L (3.6-5.0); SODIUM 141 mmol/L (132-148); TOTAL PROTEIN 7.2 g/dL (5.8-8.3)
[2017-07-04] MEDS ORDERED: Piperacillin/Tazobact 3.375 gm 100 ML IVPB STA (12:15)
[2017-07-04] MEDS ORDERED: Vancomycin 1gm in NS 250ml 1 GM/250 ML BAG IVPB STA (12:15)
--- NOTE | 2017-07-04 14:15 | CP.PCM.HP ---
<Gerber Segura - Last Filed: 07/04/17 13:58> History of Present Illness - History of Present Illness History of Present Illness: CC: LLE cellulitis 56F PMHx of cervical CA, pelvic lymph nodes removal, treated 5 years ago subsequent cronic LLE lymphedema, came into the hospital 2 days ago for LLE cellulitits. During that time patient was febrile and leg was erythematous and painful to touch. Patient was told to come back to the ER in 2 days for follow up. Patient now shows up and states she has been afebrile, pain and erythema has gone down significantly. Pt then recieved a doppler ultrasound and returning to her bed she noticed rashes localized specifically to the LLE only. Patient was admitted for LLE cellulitis and started on IV antibiotics. PMHx: Cervical CA 2011 treated with chemotherapy & radiation; chronic LLE lymphedema; hepatitis C. PSHx: Abdominal lymph node resection, back surgery from scoliosis at age 16 Meds: None ALL: Percocet & Anesthesia (gets severe vomiting), seasonal SocialHx: - former smoker (quit 12 years ago) - recovering alcoholic - lives in [place] with her 2 children PMD: Dr. Mishra Onc: Dr. Mak- [facility] GI: Dr. Cruz Present on Admission - Present on Admission Any Indicators Present on Admission: No Review of Systems - Review of Systems All systems: reviewed and no additional remarkable complaints except - Constitutional Constitutional: As Per HPI Past Patient History - Infectious Disease Hx of Infectious Diseases: None - Past Medical History & Family History Past Medical History?: Yes - Past Social History Smoking Status: Never Smoked - CARDIAC Hx Peripheral Edema: Yes (lle +4 pitting) - HEMATOLOGICAL/ONCOLOGICAL Hx Blood Disorders: Yes Hx Cancer: Yes (CERVICAL CA dx 02/2012) Hx Chemotherapy: Yes Hx Hepatitis C: Yes Other/Comment: had regular and high dose radiation for cervical ca, developed lymphadema to lle 12/2012 - INTEGUMENTARY Hx Dermatological Problems: No Other/Comment: redness warmth +4 edema from left groin down entire leg and foot pt c/o nicked herself shaving her legs 3x's went to [facility] with her children the next day did not wrap leg, cellulitis since yesterday 05/04/17, skin tag to bottom left ft, small 0.5cm dry red wound r knee - MUSCULOSKELETAL/RHEUMATOLOGICAL Hx Musculoskeletal Disorders: Yes (can't bend hands all the way) Hx Falls: No Other/Comment: SCOLIOSIS - GASTROINTESTINAL Hx Gastrointestinal Disorders: Yes (obese) - PSYCHIATRIC Hx Substance Use: No - SURGICAL HISTORY Hx Musculoskeletal Surgery: Yes (BACK JORDY INSERTION) Other/Comment: CERVICAL SEED RADIATION IMPLANT pt denies seed implant, back sx with jordy insertion for scoliosis - ANESTHESIA Hx Anesthesia: Yes Hx Anesthesia Reactions: Yes (DR PEÑALOZA AWARE) Hx Malignant Hyperthermia: No Meds Allergies/Adverse Reactions: Allergies Allergy/AdvReac Type Severity Reaction Status Date / Time acetaminophen [From Percocet] AdvReac VOMITING Verified 07/02/17 21:34 oxycodone [From Percocet] AdvReac VOMITING Verified 07/02/17 21:34 Physical Exam - Constitutional Appears: Non-toxic, No Acute Distress - Head Exam Head Exam: ATRAUMATIC - Eye Exam Eye Exam: EOMI. absent: Scleral icterus - ENT Exam ENT Exam: Mucous Membranes Moist - Respiratory Exam Respiratory Exam: NORMAL BREATHING PATTERN. absent: Accessory Muscle Use, Respiratory Distress - GI/Abdominal Exam GI & Abdominal Exam: Soft. absent: Firm, Guarding, Rigid, Tenderness - Extremities Exam Extremities exam: Positive for: pedal edema. Negative for: calf tenderness Additional comments: LLE Lymphedema. Warm to touch. No pain, induration, demarcated erythema, red macules that are subsiding during examination - Back Exam Back exam: absent: CVA tenderness (L), CVA tenderness (R) - Neurological Exam Neurological exam: Alert, Oriented x3 - Skin Skin Exam: Warm Results - Vital Signs Recent Vital Signs: Last Vital Signs Temp 97.7 F 07/04/17 10:14 Pulse 68 07/04/17 12:04 Resp 18 07/04/17 12:04 BP 110/68 07/04/17 12:04 Pulse Ox 98 07/04/17 12:04 - Labs Result Diagrams: 07/04/17 10:46 07/04/17 10:46 Assessment & Plan - Assessment and Plan (Free Text) Assessment: 56F pmhx cervical cancer, chronic lymphedema, recurrent episode of cellulitis currently improving with antibiotics. LLE cellulitis/Lymphedema Chronic lymphedema, compression stockings during the day wrap at night Start on IV Abx CTX and Vanc C/s Infectious disease due to recurrent episodes of cellulitis serial exams monitor for size of erythema and induration f/u final read of doppler h/o Hepatitis C Pt being seen by Dr. Cruz. Next appointment in September PPX Heparin/PTX Gerber Segura PGY1 <Tanvi Munoz - Last Filed: 07/04/17 15:03> Results - Vital Signs Recent Vital Signs: Last Vital Signs Temp 97.7 F 07/04/17 10:14 Pulse 68 07/04/17 12:04 Resp 18 07/04/17 12:04 BP 110/68 07/04/17 12:04 Pulse Ox 98 07/04/17 12:04 - Labs Result Diagrams: 07/04/17 10:46 07/04/17 10:46 Attending/Attestation - Attestation I have personally seen and examined this patient.: Yes I have fully participated in the care of the patient.: Yes I have reviewed all pertinent clinical information: Yes Notes (Text): 07/04/17 14:54 56 year old female with past medical history of cervical cancer s/p chemo/ radiation, chronic lymphedema and hepatitis C who presented with recurrent cellulitis. Continue with iv antibiotics as above. ID evaluation is requested. Will follow up on LE doppler. Patient follows up with GI for history of hepatitis C. Tanvi Munoz MD Hospitalist.
[2017-07-04] MEDS ORDERED: Pneumococcal 23-Valent Vaccine IM ONE (15:39)
[2017-07-04] MEDS ORDERED: Influenza Vaccine 60 mcg/0.5 mL SYR (4YR UP) IM ONE (15:39)
[2017-07-04] MEDS: Pantoprazole 20 mg EC Tab PO SCH (17:32)
[2017-07-04] MEDS: Vancomycin 1gm in NS 250ml 1 GM/250 ML BAG IVPB SCH (22:06)
[2017-07-05] MEDS: Pantoprazole 20 mg EC Tab PO SCH ×2 (06:30→16:26)
[2017-07-05 07:16] LABS: HEMATOCRIT 38.4 % (36.0-48.0); MEAN CELL VOLUME 87.7 fl (80.0-105.0); MEAN CORPUSCULAR HEMOGLOBIN 29.2 pg (25.0-35.0); MEAN CORPUSCULAR HGB CONC 33.3 g/dl (31.0-37.0); MEAN PLATELET VOLUME 10.2 fl (7.0-11.0); RED CELL DISTRIBUTION WIDTH 13.6 % (11.5-14.5)
[2017-07-05 07:35] LABS: WHITE BLOOD COUNT 2.5 10^3/ul (4.5-11.0)
[2017-07-05 07:44] LABS: BLOOD UREA NITROGEN 14 mg/dL (7-21); CALCIUM 8.5 mg/dL (8.4-10.5); CARBON DIOXIDE 28 mmol/L (21-33); CHLORIDE 108 mmol/L (98-107); GFR AFRICAN-AMERICAN > 60; GLUCOSE,RANDOM 95 mg/dL (70-110); SODIUM 140 mmol/L (132-148)
--- NOTE | 2017-07-05 09:35 | US ---
PROCEDURE: Left lower extremity venous US HISTORY: Leg pain and swelling. Evaluate for DVT. PHYSICIAN(S): Otis Ortiz MD. TECHNIQUE: Duplex sonography and color-flow Doppler with graded compression were used to evaluate the deep venous system of the left lower extremity. FINDINGS: The visualized deep venous system of the left lower extremity is sonographically normal and compressible. Normal wave forms and augmentation are seen. There is no sonographic evidence for deep venous thrombosis in the visualized segments of the left lower extremity. IMPRESSION: 1. No sonographic evidence for deep venous thrombosis in the visualized segments of the left lower extremity.
[2017-07-05] MEDS: Vancomycin 1gm in NS 250ml 1 GM/250 ML BAG IVPB SCH ×2 (10:55→22:18)
--- NOTE | 2017-07-05 12:41 | CON ---
DATE: 07/05/2017 LOCATION: The patient is seen early this morning in room #365, bed #1. CHIEF COMPLAINT: Left leg redness x1 to 2 days' duration. HISTORY OF PRESENT ILLNESS: This is a 56-year-old female with a history of cervical cancer, is stage IV as per the patient, had chemotherapy and radiation, had pelvic lymph node that was removed and has had a left lower leg lymphedema and now admitted with a left erythema x1 to 2 days' duration and infectious disease consultation requested. REVIEW OF SYSTEMS: Reveals the patient has no fevers and no chills. No chest pain. No shortness of breath. No cough. No abdominal pain or diarrhea. PAST MEDICAL HISTORY: Significant for hepatitis C, scoliosis, cervical cancer of stage IV, pelvic and lymph node removal. The patient's cervical cancer was diagnosed in 02/2012. PAST SURGICAL HISTORY: Significant for back surgery. The patient also had colonoscopy in 03/2016 and upper endoscopy in 03/2016. ALLERGIES: INCLUDE OXYCODONE AND ACETAMINOPHEN. MEDICATIONS AT HOME: Include the patient to be on clindamycin. PHYSICAL EXAMINATION: GENERAL AND VITAL SIGNS: She is in bed, no acute distress with a temperature of 98, blood pressure is 112/50, respiratory rate of 18, heart rate was up to 76 in the emergency room and the patient's BMI is 33. EXAMINATION OF HEENT: Unremarkable. NECK: Supple. LUNGS: Decreased breath sounds. HEART EXAM: Normal S1 and S2. ABDOMINAL EXAMINATION: Soft, nontender. EXTREMITIES: Examination of left leg has lymphedema with erythema that is streaking up the left leg. LABORATORY EXAMINATION: Reveals the patient's white count is 3.0, hemoglobin of 14 and platelets of 172. Chemistries reveal a BUN of 14, creatinine of 0.6. Microbiology is pending. The patient had an ultrasound of lower extremity which is negative. ASSESSMENT AND PLAN: A 56-year-old obese female with a body mass index of 33 with a history of stage IV cervical cancer, diagnosed in 02/2012, has had chemotherapy and radiation and pelvic node removed with a chronic lymphedema of the left leg and history of scoliosis and history of hepatitis C, who is ALLERGIC TO OXYCODONE AND ACETAMINOPHEN and was admitted now with left leg cellulitis and currently on vancomycin and Rocephin. We will follow clinically. We will check on the culture results. We will continue the vancomycin and Rocephin. We will also order an human immunodeficiency virus test because of her age and hepatitis C positive and we will make further recommendations upon clinical response. Pascual Rice MD
--- NOTE | 2017-07-05 14:30 | CP.PCM.PN ---
<Alphonse Gentile - Last Filed: 07/05/17 14:34> Subjective - Date & Time of Evaluation Date of Evaluation: 07/05/17 Time of Evaluation: 07:27 - Subjective Subjective: Patient was seen and examined at bedside. Per nursing, no acute events occurred overnight. The patient denies any chest pain, shortness of breath, nausea, vomiting ,changes in vision, sore throat, abdominal pain, or any other complaints. Objective - Vital Signs/Intake and Output Vital Signs (last 24 hours): Temp Pulse Resp BP Pulse Ox 98.4 F 66 10 L 112/57 L 100 07/05/17 06:00 07/05/17 06:00 07/05/17 06:00 07/05/17 06:00 07/05/17 06:00 Intake and Output: 07/05/17 07/05/17 06:59 18:59 Intake Total 1380 240 Balance 1380 240 - Medications Medications: Current Medications Diphenhydramine HCl (Benadryl) 25 mg PO Q12 PRN PRN Reason: Allergy symptoms Heparin Sodium (Porcine) (Heparin) 5,000 units SC Q12 [facility] PRN Reason: Protocol Last Admin: 07/05/17 10:59 Dose: Not Given Ceftriaxone Sodium (Rocephin 1 Gram Ivpb) 1 gm in 100 mls @ 100 mls/hr IVPB DAILY [facility] PRN Reason: Protocol Vancomycin HCl (Vancomycin 1gm) 1 gm in 250 mls @ 167 mls/hr IVPB Q12H [facility] PRN Reason: Protocol Last Admin: 07/05/17 10:55 Dose: 167 mls/hr Pantoprazole Sodium (Protonix Ec Tab) 20 mg PO 0600,1600 [facility] Last Admin: 07/05/17 06:30 Dose: 20 mg - Labs Labs: 07/05/17 06:30 07/05/17 06:30 - Head Exam Head Exam: ATRAUMATIC, NORMAL INSPECTION, NORMOCEPHALIC - Eye Exam Eye Exam: EOMI, Normal appearance, PERRL. absent: Periorbital tenderness Pupil Exam: NORMAL ACCOMODATION, PERRL. absent: Irregular, Miosis, Unequal - ENT Exam ENT Exam: Mucous Membranes Moist, Normal Exam, Normal Oropharynx - Neck Exam Neck Exam: Full ROM, Normal Inspection. absent: Lymphadenopathy, Thyromegaly - Respiratory Exam Respiratory Exam: Clear to Ausculation Bilateral, NORMAL BREATHING PATTERN. absent: Accessory Muscle Use, Chest Wall Tenderness, Prolonged Expiratory Phase , Respiratory Distress - Cardiovascular Exam Cardiovascular Exam: REGULAR RHYTHM, RRR, +S1, +S2. absent: Gallop, Rubs - GI/Abdominal Exam GI & Abdominal Exam: Soft, Normal Bowel Sounds. absent: Rigid, Tenderness, Hyperactive Bowel Sounds - Extremities Exam Extremities Exam: Full ROM Additional comments: Left leg lymphedema present. - Back Exam Back Exam: NORMAL INSPECTION. absent: CVA tenderness (L), CVA tenderness (R), paraspinal tenderness - Neurological Exam Neurological Exam: Alert, Awake, CN II-XII Intact, Normal Gait, Oriented x3 - Psychiatric Exam Psychiatric exam: Normal Affect, Normal Mood - Skin Skin Exam: Dry, Intact Assessment and Plan - Assessment and Plan (Free Text) Assessment: 56F pmhx cervical cancer, chronic lymphedema, recurrent episode of cellulitis currently improving with antibiotics. Plan: LLE cellulitis/Lymphedema Chronic lymphedema, compression stockings during the day wrap at night Continue IV Vancomycin and Ceftriaxone. ID rec's appreciated. Following Final blood culture pending. F/u with rec's tomorrow. serial exams monitor for size of erythema and induration Doppler negative for DVT. h/o Hepatitis C Pt being seen by Dr. Cruz. Next appointment in September No intervention at this point. PPX Heparin/PTX <Tanvi Munoz - Last Filed: 07/05/17 19:00> Objective - Vital Signs/Intake and Output Vital Signs (last 24 hours): Temp Pulse Resp BP Pulse Ox 98.0 F 70 20 121/67 96 07/05/17 17:14 07/05/17 17:14 07/05/17 17:14 07/05/17 17:14 07/05/17 17:14 Intake and Output: 07/05/17 07/05/17 06:59 18:59 Intake Total 1380 240 Balance 1380 240 - Medications Medications: Current Medications Diphenhydramine HCl (Benadryl) 25 mg PO Q12 PRN PRN Reason: Allergy symptoms Heparin Sodium (Porcine) (Heparin) 5,000 units SC Q12 [facility] PRN Reason: Protocol Last Admin: 07/05/17 10:59 Dose: Not Given Ceftriaxone Sodium (Rocephin 1 Gram Ivpb) 1 gm in 100 mls @ 100 mls/hr IVPB DAILY [facility] PRN Reason: Protocol Vancomycin HCl (Vancomycin 1gm) 1 gm in 250 mls @ 167 mls/hr IVPB Q12H [facility] PRN Reason: Protocol Last Admin: 07/05/17 10:55 Dose: 167 mls/hr Pantoprazole Sodium (Protonix Ec Tab) 20 mg PO 0600,1600 [facility] Last Admin: 07/05/17 16:26 Dose: 20 mg - Labs Labs: 07/05/17 06:30 07/05/17 06:30 Attending/Attestation - Attestation I have personally seen and examined this patient.: Yes I have fully participated in the care of the patient.: Yes I have reviewed all pertinent clinical information, including history, physical exam and plan: Yes Notes (Text): 07/05/17 18:59 56 year old female with past medical history of cervical cancer s/p chemo/ radiation, chronic lymphedema and hepatitis C who presented with recurrent cellulitis. This is improving with iv antibiotics. ID evaluation was appreciated. LE doppler was negative. Cultures are so far negative to date. Patient follows up with GI for history of hepatitis C. Tanvi Munoz MD Hospitalist.
[2017-07-05 17:15] VITALS: RESP 20; TEMP 98
[2017-07-06] MEDS: cefTRIAXone 1 gm 1 GM/100 ML BAG IVPB SCH ×2 (05:10→11:01)
[2017-07-06] MEDS: Pantoprazole 20 mg EC Tab PO SCH (05:27)
[2017-07-06 07:20] VITALS: BP 117/69; PULSE 67; O2SAT 95
[2017-07-06 07:29] LABS: HEMATOCRIT 38.8 % (36.0-48.0); MEAN CORPUSCULAR HEMOGLOBIN 29.1 pg (25.0-35.0); MEAN CORPUSCULAR HGB CONC 33.5 g/dl (31.0-37.0); MEAN PLATELET VOLUME 10.3 fl (7.0-11.0); RED CELL DISTRIBUTION WIDTH 13.5 % (11.5-14.5)
[2017-07-06 07:32] LABS: WHITE BLOOD COUNT 2.6 10^3/ul (4.5-11.0)
[2017-07-06 07:33] LABS: BLOOD UREA NITROGEN 18 mg/dL (7-21); CALCIUM 8.7 mg/dL (8.4-10.5); CARBON DIOXIDE 27 mmol/L (21-33); CHLORIDE 107 mmol/L (95-110); GFR AFRICAN-AMERICAN > 60; GLUCOSE,RANDOM 90 mg/dL (70-110); POTASSIUM 4.7 mmol/L (3.6-5.0); SODIUM 140 mmol/L (132-148)
[2017-07-06] MEDS: Vancomycin 1gm in NS 250ml 1 GM/250 ML BAG IVPB SCH (11:10)
--- NOTE | 2017-07-06 12:32 | CP.PCM.DIS ---
<KrupaAuxier - Last Filed: 07/06/17 17:47> Provider - Provider Date of Admission: 07/04/17 12:15 Attending physician: Riki Gomez MD Primary care physician: Spenser Mishra MD Time Spent in preparation of Discharge (in minutes): 35 Hospital Course - Lab Results Lab Results: Most Recent Lab Values WBC 2.6 10^3/ul (4.5-11.0) L* 07/06/17 06:30 RBC 4.46 10^6/uL (3.5-6.1) 07/06/17 06:30 Hgb 13.0 g/dL (12.0-16.0) 07/06/17 06:30 Hct 38.8 % (36.0-48.0) 07/06/17 06:30 MCV 87.0 fl (80.0-105.0) 07/06/17 06:30 MCH 29.1 pg (25.0-35.0) 07/06/17 06:30 MCHC 33.5 g/dl (31.0-37.0) 07/06/17 06:30 RDW 13.5 % (11.5-14.5) 07/06/17 06:30 Plt Count 174 10^3/uL (120.0-450.0) 07/06/17 06:30 MPV 10.3 fl (7.0-11.0) 07/06/17 06:30 Gran % 67.5 % (50.0-68.0) 07/04/17 10:46 Lymph % (Auto) 19.9 % (22.0-35.0) L 07/04/17 10:46 [place] % (Auto) 11.3 % (1.0-6.0) H 07/04/17 10:46 Eos % (Auto) 1.0 % (1.5-5.0) L 07/04/17 10:46 Baso % (Auto) 0.3 % (0.0-3.0) 07/04/17 10:46 Gran # 2.04 (1.4-6.5) 07/04/17 10:46 Lymph # 0.6 (1.2-3.4) L 07/04/17 10:46 [place] # 0.3 (0.1-0.6) 07/04/17 10:46 Eos # 0.0 (0.0-0.7) 07/04/17 10:46 Baso # 0.01 K/mm3 (0.0-2.0) 07/04/17 10:46 Sodium 140 mmol/L (132-148) 07/06/17 06:30 Potassium 4.7 mmol/L (3.6-5.0) 07/06/17 06:30 Chloride 107 mmol/L (95-110) 07/06/17 06:30 Carbon Dioxide 27 mmol/L (21-33) 07/06/17 06:30 Anion Gap 11 (10-20) 07/06/17 06:30 BUN 18 mg/dL (7-21) 07/06/17 06:30 Creatinine 0.6 mg/dL (0.7-1.2) L 07/06/17 06:30 Est GFR ( Amer) > 60 07/06/17 06:30 Est GFR (Non-Af Amer) > 60 07/06/17 06:30 Random Glucose 90 mg/dL (70-110) 07/06/17 06:30 Calcium 8.7 mg/dL (8.4-10.5) 07/06/17 06:30 Total Bilirubin 0.7 mg/dL (0.2-1.3) 07/04/17 10:46 AST 27 U/L (14-36) 07/04/17 10:46 ALT 27 U/L (7-56) 07/04/17 10:46 Alkaline Phosphatase 62 U/L (38-126) 07/04/17 10:46 Total Protein 7.2 g/dL (5.8-8.3) 07/04/17 10:46 Albumin 3.9 g/dL (3.0-4.8) 07/04/17 10:46 Globulin 3.2 gm/dL 07/04/17 10:46 Albumin/Globulin Ratio 1.2 (1.1-1.8) 07/04/17 10:46 - Hospital Course Hospital Course: This is a 56 year old female with a PMHx of cervical CA, pelvic lymph nodes removal, treated 5 years ago subsequent chronic LLE lymphedema, came into the hospital 2 days ago for LLE cellulitis. During that time patient was febrile and leg was erythematous and painful to touch. Patient was told to come back to the ER in 2 days for follow up. Patient now shows up and states she has been afebrile, pain and erythema has gone down significantly. Pt then received a doppler ultrasound and returning to her bed she noticed rashes localized specifically to the LLE only. Patient was admitted for LLE cellulitis and started on IV antibiotics. The patient was seen by infectious disease while admitted. The patient also had a lower extremity ultrasound done that was negative for DVT. The patient had blood cultures drawn and was started on IV vancomycin and ceftriaxone. The preliminary blood cultures were negative.The patient was re-evaluated and it was determined she could be discharged on PO Doxycycline and Augmentin for 7 days per ID rec's with instructions to follow up with PMD within one week of discharge. Discharge Exam - Head Exam Head Exam: ATRAUMATIC, NORMAL INSPECTION, NORMOCEPHALIC - Eye Exam Eye Exam: EOMI, Normal appearance, PERRL. absent: Periorbital tenderness Pupil Exam: NORMAL ACCOMODATION, PERRL. absent: Irregular, Miosis, Mydriatic, Unequal - ENT Exam ENT Exam: Mucous Membranes Moist, Normal Exam, Normal Oropharynx. absent: TM's Normal Bilaterally - Respiratory Exam Respiratory Exam: Clear to PA & Lateral, NORMAL BREATHING PATTERN, UNREMARKABLE. absent: Prolonged Expiratory Phase, Respiratory Distress - Cardiovascular Exam Cardiovascular Exam: REGULAR RHYTHM, RRR, +S1, +S2. absent: Gallop, Rubs - GI/Abdominal Exam GI & Abdominal Exam: Normal Bowel Sounds, Unremarkable. absent: Distended, Hypoactive Bowel Sounds, Organomegaly - Extremities Exam Extremities exam: full ROM - Back Exam Back exam: NORMAL INSPECTION. absent: CVA tenderness (L), CVA tenderness (R), paraspinal tenderness - Neurological Exam Neurological exam: Alert, CN II-XII Intact, Normal Gait, Oriented x3, Reflexes Normal - Psychiatric Exam Psychiatric exam: Normal Affect, Normal Mood - Skin Skin Exam: Dry, Intact, Normal Color Discharge Plan - Discharge Medications Prescriptions: Amoxicillin/Clavulanate [Augmentin 875 MG-125 MG] 875 mg PO BID #14 tab Doxycycline Hyclate [Doryx] 100 mg PO BID #14 cap - Follow Up Plan Condition: GOOD Disposition: HOME/ ROUTINE Instructions: Cellulitis (DC), Cellulitis (GEN) Additional Instructions: Patient advised to follow up with PMD within one week of discharge. Patient advised to return to emergency department for any new or worsening symptoms. Referrals: Spenser Mishra MD [Primary Care Provider] - <AlexanderTanvi Haylee - Last Filed: 07/07/17 17:26> Provider - Provider Date of Admission: 07/04/17 12:15 Attending physician: Riki Gomez MD Primary care physician: Spenser Mishra MD Hospital Course - Lab Results Lab Results: Most Recent Lab Values WBC 2.6 10^3/ul (4.5-11.0) L* 07/06/17 06:30 RBC 4.46 10^6/uL (3.5-6.1) 07/06/17 06:30 Hgb 13.0 g/dL (12.0-16.0) 07/06/17 06:30 Hct 38.8 % (36.0-48.0) 07/06/17 06:30 MCV 87.0 fl (80.0-105.0) 07/06/17 06:30 MCH 29.1 pg (25.0-35.0) 07/06/17 06:30 MCHC 33.5 g/dl (31.0-37.0) 07/06/17 06:30 RDW 13.5 % (11.5-14.5) 07/06/17 06:30 Plt Count 174 10^3/uL (120.0-450.0) 07/06/17 06:30 MPV 10.3 fl (7.0-11.0) 07/06/17 06:30 Gran % 67.5 % (50.0-68.0) 07/04/17 10:46 Lymph % (Auto) 19.9 % (22.0-35.0) L 07/04/17 10:46 [place] % (Auto) 11.3 % (1.0-6.0) H 07/04/17 10:46 Eos % (Auto) 1.0 % (1.5-5.0) L 07/04/17 10:46 Baso % (Auto) 0.3 % (0.0-3.0) 07/04/17 10:46 Gran # 2.04 (1.4-6.5) 07/04/17 10:46 Lymph # 0.6 (1.2-3.4) L 07/04/17 10:46 [place] # 0.3 (0.1-0.6) 07/04/17 10:46 Eos # 0.0 (0.0-0.7) 07/04/17 10:46 Baso # 0.01 K/mm3 (0.0-2.0) 07/04/17 10:46 Sodium 140 mmol/L (132-148) 07/06/17 06:30 Potassium 4.7 mmol/L (3.6-5.0) 07/06/17 06:30 Chloride 107 mmol/L (95-110) 07/06/17 06:30 Carbon Dioxide 27 mmol/L (21-33) 07/06/17 06:30 Anion Gap 11 (10-20) 07/06/17 06:30 BUN 18 mg/dL (7-21) 07/06/17 06:30 Creatinine 0.6 mg/dL (0.7-1.2) L 07/06/17 06:30 Est GFR ( Amer) > 60 07/06/17 06:30 Est GFR (Non-Af Amer) > 60 07/06/17 06:30 Random Glucose 90 mg/dL (70-110) 07/06/17 06:30 Calcium 8.7 mg/dL (8.4-10.5) 07/06/17 06:30 Total Bilirubin 0.7 mg/dL (0.2-1.3) 07/04/17 10:46 AST 27 U/L (14-36) 07/04/17 10:46 ALT 27 U/L (7-56) 07/04/17 10:46 Alkaline Phosphatase 62 U/L (38-126) 07/04/17 10:46 Total Protein 7.2 g/dL (5.8-8.3) 07/04/17 10:46 Albumin 3.9 g/dL (3.0-4.8) 07/04/17 10:46 Globulin 3.2 gm/dL 07/04/17 10:46 Albumin/Globulin Ratio 1.2 (1.1-1.8) 07/04/17 10:46 HIV 1&2 Ag/Ab, 4th Gen Nonreactive (Nonreactive) 07/05/17 10:50 Attending/Attestation - Attestation I have personally seen and examined this patient.: Yes I have fully participated in the care of the patient.: Yes I have reviewed all pertinent clinical information, including history, physical exam and plan: Yes Notes (Text): 07/07/17 17:24 56 year old female with past medical history of cervical cancer s/p chemo/ radiation, chronic lymphedema and hepatitis C who presented with recurrent cellulitis. This improved with iv antibiotics. LE doppler was negative. Cellulitis improved with iv antibiotics. Patient follows up with GI for history of hepatitis C. Follow up with pmd. Continue with po antibiotics as above. Tanvi Munoz MD Hospitalist.
--- NOTE | 2017-07-06 14:24 | PN ---
DATE: 07/06/2017 SUBJECTIVE: The patient is in bed, in no acute distress, nontoxic. PHYSICAL EXAMINATION: VITAL SIGNS: Temperature is 98, blood pressure is 117/60, respiratory rate of 20, and heart rate of 67. HEENT: Unremarkable. NECK: Supple. LUNGS: Decreased breath sounds. HEART: Normal S1 and S2. ABDOMEN: Soft and nontender. LABORATORY EXAMINATION: Reveals a white count of 2.6, hemoglobin of 13, and platelets of 174. BUN of 18 and creatinine of 0.6. Microbiology reveals the blood cultures are negative. ASSESSMENT/PLAN: This is a 56-year-old obese female with body mass index of 33, history of stage IV cervical cancer diagnosed in 02/2012, has had chemotherapy and radiation, pelvic nodes, chronic lymphedema of the left leg and history of scoliosis, history of hepatitis C, who is allergic to oxycodone and acetaminophen, admitted with a left leg cellulitis on vancomycin and ceftriaxone. The patient's leg is much improved today and with negative blood cultures, check on the HIV and final blood culture results, may be able to switch to p.o. the antibiotics in the next 24-48 hours. Pascual Rice MD
== END 2017-07-06 15:24 | disposition home or self-care (01) | DRG 277 ==
LOC: ED 10:03 → ERH 12:15 → 3RNO 13:10
PROVIDERS: ADMIT Hospitalist; ATTEND Hospitalist
DX: L03.116 Cellulitis of left lower limb (principal); B19.20 Unspecified viral hepatitis C without hepatic coma; M41.9 Scoliosis, unspecified; Z85.41 Personal history of malignant neoplasm of cervix uteri; F10.21 Alcohol dependence, in remission; I89.0 Lymphedema, not elsewhere classified; Z87.891 Personal history of nicotine dependence; Z88.5 Allergy status to narcotic agent; Z92.21 Personal history of antineoplastic chemotherapy; Z92.3 Personal history of irradiation; E66.9 Obesity, unspecified; Z68.33 Body mass index [BMI] 33.0-33.9, adult; Z88.6 Allergy status to analgesic agent; R40.2412 Glasgow coma scale score 13-15, at arrival to emergency department

== ENCOUNTER 2017-11-18 13:33 | Emergency (ER) | payer MEDICAID ==
[2017-11-18 13:34] VITALS: BMI 33.3
[2017-11-18 13:54] VITALS: TEMP 99.6; O2SAT 99
--- NOTE | 2017-11-18 15:14 | ED PDOC ---
Arrival/HPI - General Chief Complaint: Lower Extremity Problem/Injury Time Seen by Provider: 11/18/17 13:48 Historian: Patient - History of Present Illness Narrative History of Present Illness (Text): 11/18/17 15:10 56yo female with history of lymphedema present with complaint of subjective fever, joint pain and chills since last night. States she had similar symptoms the last time she was treated for Cellulitis and thinks she have cellulitis. she denies leg pain, redness, trauma, chest pain, cough, sore throat, nausea, vomiting, abdominal pain, any other complaint. Past Medical History - Provider Review Nursing Documentation Reviewed: Yes - Infectious Disease Hx of Infectious Diseases: None - Reproductive Menopause: Yes - Cardiac Hx Peripheral Edema: Yes (left leg +4 pitting) - Pulmonary Hx Respiratory Disorders: Yes (H/O SMOKING 1 PPD. QUIT 10 YRS AGO) - Neurological Hx Neurological Disorder: No - HEENT Hx HEENT Disorder: No - Renal Hx Renal Disorder: No - Endocrine/Metabolic Hx Endocrine Disorders: No - Hematological/Oncological Hx Blood Disorders: Yes Hx Cancer: Yes (CERVICAL CA dx 02/2012) Hx Chemotherapy: Yes Hx Hepatitis C: Yes Other/Comment: had regular and high dose radiation for cervical ca, developed lymphadema to [facility] 12/2012 - Integumentary Hx Dermatological Disorder: No Other/Comment: redness warmth +4 edema from left groin down entire leg and foot pt c/o nicked herself shaving her legs 3x's went to [facility] with her children the next day did not wrap leg, cellulitis since yesterday 05/04/17, skin tag to bottom left ft, small 0.5cm dry red wound r knee - Musculoskeletal/Rheumatological Hx Musculoskeletal Disorders: Yes (can't bend hands all the way) Hx Falls: No Other/Comment: SCOLIOSIS - Gastrointestinal Hx Gastrointestinal Disorders: Yes (obese) - Genitourinary/Gynecological Hx Genitourinary Disorders: No - Psychiatric Hx Psychophysiologic Disorder: No Hx Substance Use: No - Surgical History Hx Musculoskeletal Surgery: Yes (BACK JORDY INSERTION) Other/Comment: CERVICAL SEED RADIATION IMPLANT pt denies seed implant, back sx with jordy insertion for scoliosis - Anesthesia Hx Anesthesia: Yes Hx Anesthesia Reactions: Yes (DR PEÑALOZA AWARE) Hx Malignant Hyperthermia: No Family/Social History - Physician Review Nursing Documentation Reviewed: Yes Family/Social History: Unknown Family HX Smoking Status: Never Smoked Hx Alcohol Use: Yes Frequency of alcohol use: Socially Hx Substance Use: No Allergies/Home Meds Allergies/Adverse Reactions: Allergies acetaminophen [From Percocet] Adverse Reaction (Verified 11/18/17 13:54) VOMITING oxycodone [From Percocet] Adverse Reaction (Verified 11/18/17 13:54) VOMITING Review of Systems - Physician Review All systems were reviewed & negative as marked: Yes - Review of Systems Constitutional: Fatigue, Fevers Eyes: Normal ENT: Normal Respiratory: Normal Cardiovascular: Normal Gastrointestinal: Normal Genitourinary Female: Normal Musculoskeletal: Normal Skin: Normal Neurological: Normal Endocrine: Normal Hemo/Lymphatic: Normal Psychiatric: Normal Physical Exam Vital Signs Reviewed: Yes Vital Signs Temp Pulse Resp BP Pulse Ox 11/18/17 16:12 92 H 16 110/73 99 11/18/17 14:01 99.6 F 101 H 18 103/68 99 11/18/17 13:46 99.6 F 101 H 20 103/68 99 Temperature: Afebrile Blood Pressure: Normal Pulse: Regular Respiratory Rate: Normal Appearance: Positive for: Well-Appearing, Non-Toxic, Comfortable Pain Distress: None Mental Status: Positive for: Alert and Oriented X 3 - Systems Exam Head: Present: Atraumatic, Normocephalic Pupils: Present: PERRL Extroacular Muscles: Present: EOMI Conjunctiva: Present: Normal Mouth: Present: Moist Mucous Membranes Neck: Present: Normal Range of Motion Respiratory/Chest: Present: Clear to Auscultation, Good Air Exchange. No: Respiratory Distress, Accessory Muscle Use Cardiovascular: Present: Regular Rate and Rhythm, Normal S1, S2. No: Murmurs Abdomen: Present: Normal Bowel Sounds. No: Tenderness, Distention, Peritoneal Signs Back: Present: Normal Inspection Upper Extremity: Present: Normal Inspection. No: Cyanosis, Edema Lower Extremity: Present: Normal Inspection, NORMAL PULSES, Normal ROM. No: Edema, CALF TENDERNESS, Tenderness, Erythema, Temperature Abnormalties Neurological: Present: GCS=15, CN II-XII Intact, Speech Normal Skin: Present: Warm, Dry, Normal Color. No: Rashes Psychiatric: Present: Alert, Oriented x 3, Normal Insight, Normal Concentration Medical Decision Making ED Course and Treatment: 11/18/17 16:16 Pt in ED for stated history. 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 she was otherwise hemodynamically stable. Rapid flu A was positive and pt was treated with Tamiflu. No evidence of cellulitis was noted in ED. she was referred to her PMd. Advised to take fluid and take antipyretics every 6hrs as needed. - Lab Interpretations Lab Results: Lab Results 11/18/17 15:00: Urine Color Yellow, Urine Appearance Clear, Urine pH 6.0, Ur Specific [place] >= 1.030, Urine Protein 30 H, Urine Glucose (UA) Negative, Urine Ketones Trace H, Urine Blood Negative, Urine Nitrate Negative, Urine Bilirubin Small H, Urine Urobilinogen 0.2, Ur Leukocyte Esterase Trace H, Urine RBC 0 - 2, Urine WBC 2 - 5, Ur Epithelial Cells 4 - 5, Amorphous Sediment Small , Urine Bacteria Many, Urine Other Uyeast 11/18/17 14:31: Influenza Typ A,B (EIA) Pos for influenza a H - Medication Orders Current Medication Orders: Discontinued Medications Oseltamivir Phosphate (Tamiflu Cap) 75 mg PO ONCE STA PRN Reason: Protocol Stop: 11/18/17 15:56 Last Admin: 11/18/17 16:11 Dose: 75 mg Disposition/Present on Arrival - Present on Arrival Any Indicators Present on Arrival: No History of DVT/PE: No History of Uncontrolled Diabetes: No Urinary Catheter: No History of Decub. Ulcer: No History Surgical Site Infection Following: None - Disposition Have Diagnosis and Disposition been Completed?: Yes Diagnosis: Influenza Disposition: HOME/ ROUTINE Disposition Time: 16:00 Patient Plan: Discharge Patient Problems: Current Active Problems Problem Status Onset Influenza Acute Condition: STABLE Additional Instructions: take medication as directed and drink plenty of fluid follow up with your doctor Return to ED for any new or worsening symptoms Prescriptions: Oseltamivir Phosphate [Tamiflu] 75 mg PO BID #10 capsule Referrals: Arias Mishra MD [Primary Care Provider] - Follow up with primary Forms: [employer] (Croatian), WORK NOTE
[2017-11-18 15:16] LABS: URINE APPEARANCE CLEAR (CLEAR); URINE BILIRUBIN SMALL (NEGATIVE); URINE BLOOD NEGATIVE (NEGATIVE); URINE COLOR YELLOW (YELLOW); URINE GLUCOSE (UA) NEGATIVE (NEGATIVE); URINE LEUKOCYTE ESTERASE TRACE Leu/uL (NEGATIVE); URINE NITRATE NEGATIVE (NEGATIVE); URINE PROTEIN 30 mg/dL (<30 mg/dL); URINE UROBILINOGEN 0.2 E.U./dL (<1 E.U./dL)
[2017-11-18 15:41] LABS: URINE AMORPHOUS SEDIMENT SMALL; URINE BACTERIA MANY (NEG); URINE RBC 0 - 2 /hpf (0-2)
[2017-11-18 16:14] VITALS: BP 110/73; PULSE 92; RESP 16
== END 2017-11-18 16:12 | disposition home or self-care (01) ==
LOC: ED 13:33
DX: J11.1 Influenza due to unidentified influenza virus with other respiratory manifestations (principal)

== ENCOUNTER 2017-11-19 20:24 | Emergency (ER) | payer MEDICAID ==
[2017-11-19 20:25] VITALS: BMI 33.3
[2017-11-19] MEDS ORDERED: cefTRIAXone 1 gm 1 GM/100 ML BAG IVPB STA (20:52)
[2017-11-19 20:54] VITALS: BP 105/54; PULSE 92; RESP 18; TEMP 98.2; O2SAT 98
--- NOTE | 2017-11-19 20:57 | ED PDOC ---
Arrival/HPI - General Chief Complaint: Lower Extremity Problem/Injury Time Seen by Provider: 11/19/17 20:27 Historian: Patient - History of Present Illness Narrative History of Present Illness (Text): 11/19/17 20:53 56yo female with PMhx of Lymphedema who present with complaint of left leg redness and warmness since this afternoon. Patient reports fever that resolves temporary with Ibuprofen. She was seen here yesterday and was treated for influenza. She denies nausea, vomiting, any other complaint Past Medical History - Provider Review Nursing Documentation Reviewed: Yes - Infectious Disease Hx of Infectious Diseases: None - Cardiac Hx Peripheral Edema: Yes (left leg +4 pitting) - Pulmonary Hx Respiratory Disorders: Yes (H/O SMOKING 1 PPD. QUIT 10 YRS AGO) - Neurological Hx Neurological Disorder: No - HEENT Hx HEENT Disorder: No - Renal Hx Renal Disorder: No - Endocrine/Metabolic Hx Endocrine Disorders: No - Hematological/Oncological Hx Blood Disorders: Yes Hx Cancer: Yes (CERVICAL CA dx 02/2012) Hx Chemotherapy: Yes Hx Hepatitis C: Yes Other/Comment: had regular and high dose radiation for cervical ca, developed lymphadema to [facility] 12/2012 - Integumentary Hx Dermatological Disorder: No Other/Comment: redness warmth +4 edema from left groin down entire leg and foot pt c/o nicked herself shaving her legs 3x's went to [facility] with her children the next day did not wrap leg, cellulitis since yesterday 05/04/17, skin tag to bottom left ft, small 0.5cm dry red wound r knee - Musculoskeletal/Rheumatological Hx Musculoskeletal Disorders: Yes (can't bend hands all the way) Hx Falls: No Other/Comment: SCOLIOSIS - Gastrointestinal Hx Gastrointestinal Disorders: Yes (obese) - Genitourinary/Gynecological Hx Genitourinary Disorders: No - Psychiatric Hx Psychophysiologic Disorder: No Hx Substance Use: No - Surgical History Hx Musculoskeletal Surgery: Yes (BACK JORDY INSERTION) Other/Comment: CERVICAL SEED RADIATION IMPLANT pt denies seed implant, back sx with jordy insertion for scoliosis - Anesthesia Hx Anesthesia: Yes Hx Anesthesia Reactions: Yes (DR PEÑALOZA AWARE) Hx Malignant Hyperthermia: No Family/Social History - Physician Review Nursing Documentation Reviewed: Yes Family/Social History: Unknown Family HX Smoking Status: Never Smoked Hx Alcohol Use: Yes Hx Substance Use: No Allergies/Home Meds Allergies/Adverse Reactions: Allergies acetaminophen [From Percocet] Adverse Reaction (Verified 11/19/17 20:43) VOMITING oxycodone [From Percocet] Adverse Reaction (Verified 11/19/17 20:43) VOMITING Review of Systems - Physician Review All systems were reviewed & negative as marked: Yes - Review of Systems Constitutional: Normal Eyes: Normal ENT: Normal Respiratory: Normal Cardiovascular: Normal Gastrointestinal: Normal Genitourinary Female: Normal Musculoskeletal: Normal Skin: Cellulitis (Left leg) Neurological: Normal Endocrine: Normal Hemo/Lymphatic: Normal Psychiatric: Normal Physical Exam Vital Signs Reviewed: Yes Vital Signs Temp Pulse Resp BP Pulse Ox 11/19/17 20:49 98.2 F 92 H 18 105/54 L 98 Temperature: Afebrile Blood Pressure: Normal Pulse: Regular Respiratory Rate: Normal Appearance: Positive for: Well-Appearing, Non-Toxic, Comfortable Pain Distress: None Mental Status: Positive for: Alert and Oriented X 3 - Systems Exam Head: Present: Atraumatic, Normocephalic Pupils: Present: PERRL Extroacular Muscles: Present: EOMI Conjunctiva: Present: Normal Mouth: Present: Moist Mucous Membranes Neck: Present: Normal Range of Motion Respiratory/Chest: Present: Clear to Auscultation, Good Air Exchange. No: Respiratory Distress, Accessory Muscle Use Cardiovascular: Present: Regular Rate and Rhythm, Normal S1, S2. No: Murmurs Abdomen: Present: Normal Bowel Sounds. No: Tenderness, Distention, Peritoneal Signs Back: Present: Normal Inspection Upper Extremity: Present: Normal Inspection. No: Cyanosis, Edema Lower Extremity: Present: Normal Inspection. No: Edema Neurological: Present: GCS=15, CN II-XII Intact, Speech Normal Skin: Present: Warm, Dry, Normal Color, Erythematous (LEft leg lymphedema with overlaying erythema. Warmth to touch. No TTP). No: Rashes Psychiatric: Present: Alert, Oriented x 3, Normal Insight, Normal Concentration Medical Decision Making ED Course and Treatment: 11/19/17 22:22 Pt in ED for stated history. Lab was unremarkable. Pt was treated with Rocephin in ED and DC home with doxycycline and keflex. - Lab Interpretations Lab Results: 11/19/17 21:11 11/19/17 21:11 Lab Results 02/28/18 21:11: Sodium 139, Potassium 3.9, Chloride 101, Carbon Dioxide 26, Anion Gap 15, BUN 18, Creatinine 0.7, Est GFR ( Amer) > 60, Est GFR (Non- Af Amer) > 60, Random Glucose 98, Calcium 9.4, Total Bilirubin 1.2, AST 19, ALT 16, Alkaline Phosphatase 61, Total Protein 7.1, Albumin 3.7, Globulin 3.4, Albumin/Globulin Ratio 1.1 11/19/17 21:11: WBC 9.4 D, RBC 4.67, Hgb 14.3, Hct 41.6, MCV 89.1, MCH 30.6, MCHC 34.4, RDW 13.9, Plt Count 145, MPV 10.8, Gran % 91.0 H, Lymph % (Auto) 5.9 L, [place] % (Auto) 3.0, Eos % (Auto) 0.0 L, Baso % (Auto) 0.1, Gran # 8.52 H, Lymph # (Auto) 0.6 L, [place] # (Auto) 0.3, Eos # (Auto) 0.0, Baso # (Auto) 0.01, Neutrophils % (Manual) Pending, Lymphocytes % (Manual) Pending, Monocytes % ( Manual) Pending - Medication Orders Current Medication Orders: Discontinued Medications Ceftriaxone Sodium (Rocephin 1 Gram Ivpb) 1 gm in 100 mls @ 200 mls/hr IVPB STAT STA PRN Reason: Protocol Stop: 11/19/17 21:21 Last Admin: 11/19/17 21:14 Dose: 200 mls/hr eMAR Start Stop Document 11/19/17 21:14 CNR (Rec: 11/19/17 21:15 CNR [id number]) Intravenous Solution Start Date 11/19/17 Start Time 21:15 End Date 11/19/17 End time 21:45 Total Infusion Time 30 Disposition/Present on Arrival - Present on Arrival Any Indicators Present on Arrival: No History of DVT/PE: No History of Uncontrolled Diabetes: No Urinary Catheter: No History of Decub. Ulcer: No History Surgical Site Infection Following: None - Disposition Have Diagnosis and Disposition been Completed?: Yes Diagnosis: Cellulitis Disposition: HOME/ ROUTINE Disposition Time: 21:55 Patient Plan: Discharge Patient Problems: Current Active Problems Problem Status Onset Cellulitis Acute Condition: STABLE Discharge Instructions (ExitCare): Cellulitis (Skin Infection), Adult (DC), Cellulitis (ED) Additional Instructions: Follow up with your doctor Return to ED for any new or worsening symptoms Prescriptions: Cephalexin [Keflex] 500 mg PO TID #30 capsule Doxycycline Hyclate 100 mg PO BID #14 capsule Referrals: Arias Mishra MD [Primary Care Provider] - Follow up with primary Forms: [employer] (Macedonian)
[2017-11-19 21:35] LABS: BASO # 0.01 K/mm3 (0.0-2.0); BASO % 0.1 % (0.0-3.0); GRAN # 8.52 (1.4-6.5); HEMOGLOBIN 14.3 g/dL (12.0-16.0); LYMPH # 0.6 (1.2-3.4); LYMPH % 5.9 % (22.0-35.0); MEAN CELL VOLUME 89.1 fl (80.0-105.0); MEAN CORPUSCULAR HEMOGLOBIN 30.6 pg (25.0-35.0); MEAN CORPUSCULAR HGB CONC 34.4 g/dl (31.0-37.0); MEAN PLATELET VOLUME 10.8 fl (7.0-11.0); MONO # 0.3 (0.1-0.6); PLATELET COUNT 145 10^3/uL (120.0-450.0); RBC 4.67 10^6/uL (3.5-6.1); RED CELL DISTRIBUTION WIDTH 13.9 % (11.5-14.5); WHITE BLOOD COUNT 9.4 10^3/ul (4.5-11.0)
[2017-11-19 21:49] LABS: ALB/GLOB RATIO 1.1 (1.1-1.8); ALBUMIN 3.7 g/dL (3.0-4.8); ALT/SGPT 16 U/L (7-56); AST/SGOT 19 U/L (14-36); BLOOD UREA NITROGEN 18 mg/dL (7-21); CALCIUM 9.4 mg/dL (8.4-10.5); GFR AFRICAN-AMERICAN > 60; GFR NON-AFRICAN AMERICAN > 60
[2017-11-19 22:26] LABS: BAND 3 % (0-2); LYMPHOCYTE 4 % (22.0-35.0); MONOCYTE 0 % (1.0-6.0); NEUTROPHIL 93 % (50.0-70.0)
[2017-11-19 22:27] LABS: PLATELET ESTIMATE NORMAL (NORMAL)
== END 2017-11-19 22:17 | disposition home or self-care (01) ==
LOC: ED 20:24
DX: L03.116 Cellulitis of left lower limb (principal)
CPT/HCPCS: 80053; 85025; 87040; 96365; 99284; J0696

== ENCOUNTER 2018-11-24 13:39 | Inpatient (IN) | payer MEDICAID ==
[2018-11-24] MEDS ORDERED: Vancomycin 1gm in NS 250ml 1 GM/250 ML BAG IVPB STA (14:49)
[2018-11-24] MEDS ORDERED: Piperacillin/Tazobact 3.375 gm 100 ML IVPB STA (14:49)
--- NOTE | 2018-11-24 15:13 | ED PDOC ---
Arrival/HPI - General Chief Complaint: Abnormal Skin Integrity Time Seen by Provider: 11/24/18 13:41 Historian: Patient - History of Present Illness Narrative History of Present Illness (Text): 11/24/18 15:00 58-year-old female with a history of lymphedema in the left leg presents today with a cellulitis of the left leg that started yesterday. Patient states yesterday she noticed erythema to the left leg. She denies numbness weakness or tingling in the extremity. Patient states she has a history of cellulitis in the leg in the past. Patient states she was told today that she had fever. No medications have been taken at home. Patient states whenever she gets cellulitis in the leg they usually give her IV antibiotics. Past Medical History - Provider Review Nursing Documentation Reviewed: Yes - Travel History Have you recently traveled outside [place] w/in the past 3 mons?: No - Infectious Disease Hx of Infectious Diseases: None - Cardiac Hx Cardiac Disorders: Yes Hx Peripheral Edema: Yes - Pulmonary Hx Respiratory Disorders: Yes - Neurological Hx Neurological Disorder: No - HEENT Hx HEENT Disorder: No - Renal Hx Renal Disorder: No - Endocrine/Metabolic Hx Endocrine Disorders: No - Hematological/Oncological Hx Blood Disorders: Yes Hx Cancer: Yes Hx Chemotherapy: Yes Hx Hepatitis C: Yes - Integumentary Hx Dermatological Disorder: Yes Hx Cellulitis: Yes - Musculoskeletal/Rheumatological Hx Musculoskeletal Disorders: Yes Other/Comment: SCOLIOSIS - Gastrointestinal Hx Gastrointestinal Disorders: Yes - Genitourinary/Gynecological Hx Genitourinary Disorders: Yes Hx Cervical Cancer: Yes - Psychiatric Hx Psychophysiologic Disorder: No Hx Substance Use: No - Surgical History Hx Musculoskeletal Surgery: Yes (BACK JORDY INSERTION) - Anesthesia Hx Anesthesia: Yes Hx Anesthesia Reactions: Yes Hx Malignant Hyperthermia: No Family/Social History - Physician Review Nursing Documentation Reviewed: Yes Family/Social History: Unknown Family HX Smoking Status: Never Smoked Hx Alcohol Use: Yes Hx Substance Use: No Allergies/Home Meds Allergies/Adverse Reactions: Allergies oxycodone [From Percocet] Adverse Reaction (Verified 11/24/18 13:41) VOMITING Home Medications: Home Meds Medication Instructions Recorded Confirmed No Known Home Med 11/24/18 11/24/18 Review of Systems - Review of Systems Constitutional: absent: Fatigue, Fevers Respiratory: absent: SOB, Cough Cardiovascular: absent: Chest Pain, Palpitations Gastrointestinal: absent: Abdominal Pain Musculoskeletal: Arthralgias Skin: Cellulitis Neurological: absent: Headache, Dizziness Physical Exam Vital Signs Reviewed: Yes Vital Signs Temp Pulse Resp BP Pulse Ox 11/24/18 13:42 100.3 F H 106 H 16 108/70 95 Temperature: Febrile Blood Pressure: Normal Pulse: Tachycardic Respiratory Rate: Normal Appearance: Positive for: Well-Appearing, Non-Toxic, Comfortable Pain Distress: None Mental Status: Positive for: Alert and Oriented X 3 - Systems Exam Head: Present: Atraumatic Respiratory/Chest: Present: Clear to Auscultation, Good Air Exchange. No: Respiratory Distress, Accessory Muscle Use, Wheezes, Retracting, Rhonchi Cardiovascular: Present: Tachycardic Abdomen: No: Tenderness, Distention Lower Extremity: Present: Tenderness (Left leg: Lymphedema noted to the left leg with significant erythema and warmth extending from the toe into the thigh.), Swelling, Erythema, Neurovascularly Intact, Capillary Refill < 2 s Neurological: Present: GCS=15, Speech Normal Skin: Present: Warm, Dry, Normal Color Psychiatric: Present: Alert, Oriented x 3 Medical Decision Making ED Course and Treatment: 11/24/18 15:02 58-year-old female with a cellulitis to the left leg. Febrile and tachycardic in the ER. CBC: 9.8 Bands 3 CMP: wnl venous duplex of the left lower leg:no DVT verbal report from [facility] Blood cultures pending blood cultures Patient was started on vancomycin and Zosyn IV 11/24/18 16:40 lactic acid; 2.1 code sepsis called. All aspects of this case were discussed the attending of record. case discussed with dr. marrero; accepts admission to [facility] for sepsis, bandemia, cellulitis. Impression; Cellulitis, Bandemia, Sepsis admit - RAD Interpretation Radiology Orders: 11/24/18 14:51 DUPLEX LOWER EXTRM VEIN LEFT [US] Stat - Medication Orders Current Medication Orders: Vancomycin HCl (Vancomycin 1gm) 1 gm in 250 mls @ 167 mls/hr IVPB STAT STA; Protocol Stop: 11/24/18 16:18 Piperacillin Sod/Tazobactam Sod (Zosyn 3.375 In Ns 100ml) 100 mls @ 200 mls/hr IVPB STAT STA; Protocol Stop: 11/24/18 15:18 Disposition/Present on Arrival - Present on Arrival Any Indicators Present on Arrival: No History of DVT/PE: No History of Uncontrolled Diabetes: No Urinary Catheter: No History of Decub. Ulcer: No History Surgical Site Infection Following: None - Disposition Have Diagnosis and Disposition been Completed?: Yes Diagnosis: Cellulitis, Bandemia, Sepsis Disposition: HOSPITALIZED Disposition Time: 15:14 Patient Plan: Admission, Other Patient Problems: Current Active Problems Problem Status Onset Bandemia Acute Cellulitis Acute Sepsis Acute Condition: FAIR
[2018-11-24 15:32] LABS: HEMOGLOBIN 14.6 g/dL (12.0-16.0); LYMPH # 0.6 (1.2-3.4); LYMPH % 5.9 % (22.0-35.0); MEAN CELL VOLUME 87.8 fl (80.0-105.0); MEAN CORPUSCULAR HEMOGLOBIN 30.2 pg (25.0-35.0); MEAN CORPUSCULAR HGB CONC 34.4 g/dl (31.0-37.0); MEAN PLATELET VOLUME 10.2 fl (7.0-11.0); MONO # 0.2 (0.1-0.6); MONO % 2.2 % (1.0-6.0); PLATELET COUNT 154 10^3/uL (120.0-450.0); RBC 4.83 10^6/uL (3.5-6.1); RED CELL DISTRIBUTION WIDTH 14.2 % (11.5-14.5); WHITE BLOOD COUNT 9.8 10^3/uL (4.5-11.0)
[2018-11-24 15:58] LABS: ANISOCYTOSIS SLIGHT; BAND 3 % (0-2); LYMPHOCYTE 5 % (22.0-35.0); MONOCYTE 2 % (1.0-6.0); NEUTROPHIL 90 % (50.0-70.0); PLATELET ESTIMATE NORMAL (NORMAL)
[2018-11-24 16:07] LABS: VENOUS BLOOD GAS BASE EXCESS -0.8 mmol/L (0.0-2.0); VENOUS BLOOD GAS PO2 20 mm/Hg (30-55); VENOUS BLOOD PH 7.36 (7.32-7.43)
[2018-11-24 16:17] LABS: ALB/GLOB RATIO 1.1 (1.1-1.8); ALT/SGPT 7 U/L (7-56); AST/SGOT 22 U/L (14-36); BLOOD UREA NITROGEN 14 mg/dL (7-21); GFR NON-AFRICAN AMERICAN > 60
--- NOTE | 2018-11-24 18:40 | CP.PCM.HP ---
<Jose Manuel Bass - Last Filed: 11/24/18 18:57> History of Present Illness - History of Present Illness History of Present Illness: Jose Manuel Bass DO, PGY-1 Hospitalist Admission History and Physical for Dr. Rothman CC: LLE redness, swelling HPI: Pedro is a pleasant 58 year old female with PMH of cervical CA (diagnosed in 2011, s/p radiation and chemo, in remission) and chronic LLE lymphedema (2/2 radiation treatment) who presents to [facility] ED with a complaint of worsening redness and warmth of the LLE. She admits to having prior episodes of cellulitis of the LLE, most recently in 2017 when she was treated at [facility]. She states the symptoms of redness/warmth have been worsening over the past week. She also reports it has been more difficult to ambulate than usual because of the worsening swelling. She denies history of prior DVT in LLE. She admits to subjective fever and chills at home that have been persistent over the past day. She otherwise denies FOURNIER, vision changes, CP, SOB, abd pain/nausea/vomiting, or urinary complaints. PMD: Tad Past Medical History: cervical CA (diagnosed in 2011, s/p radiation and chemo, in remission) and chronic LLE lymphedema (2/2 radiation treatment) Past Surgical History: scoliosis correction as an adolescent Allergies: oxycodone, anesthesia Home medications: patient takes no meds regularly Family History: sister had cervical CA Social History: admits to smoking 1 PPD for about 30 years but quit 14 years ago. Patient also admits that she has a history of heavy drinking and polysubstance abuse (cocaine) but quit 14 years ago in a rehab program. Pharmacy: [id number] Present on Admission - Present on Admission Any Indicators Present on Admission: No History of DVT/PE: No History of Uncontrolled Diabetes: No Urinary Catheter: No Decubitus Ulcer Present: No Review of Systems - Constitutional Constitutional: Chills, Fatigue, Fever. absent: Night Sweats - EENT Eyes: absent: Change in Vision - Cardiovascular Cardiovascular: absent: Chest Pain, Dyspnea, Palpitations - Respiratory Respiratory: absent: Cough, Dyspnea - Gastrointestinal Gastrointestinal: absent: Abdominal Pain, Nausea, Vomiting - Genitourinary Genitourinary: absent: Change in Urinary Stream, Difficulty Urinating, Dysuria - Musculoskeletal Musculoskeletal: Joint Swelling, Limited Range of Motion - Neurological Neurological: absent: Dizziness, Numbness, Headaches, Tingling - Hematologic/Lymphatic Additional comments: chronic lymphedema of LLE Past Patient History - Infectious Disease Hx of Infectious Diseases: None - Past Medical History & Family History Past Medical History?: Yes - Past Social History Smoking Status: Never Smoked - CARDIAC Hx Cardiac Disorders: Yes Hx Peripheral Edema: Yes - PULMONARY Hx Respiratory Disorders: Yes - NEUROLOGICAL Hx Neurological Disorder: No - HEENT Hx HEENT Problems: No - RENAL Hx Chronic Kidney Disease: No - ENDOCRINE/METABOLIC Hx Endocrine Disorders: No - HEMATOLOGICAL/ONCOLOGICAL Hx Blood Disorders: Yes Hx Cancer: Yes Hx Chemotherapy: Yes Hx Hepatitis C: Yes - INTEGUMENTARY Hx Dermatological Problems: Yes Hx Cellulitis: Yes - MUSCULOSKELETAL/RHEUMATOLOGICAL Hx Musculoskeletal Disorders: Yes Other/Comment: SCOLIOSIS - GASTROINTESTINAL Hx Gastrointestinal Disorders: Yes - GENITOURINARY/GYNECOLOGICAL Hx Genitourinary Disorders: Yes Hx Cervical Cancer: Yes - PSYCHIATRIC Hx Psychophysiologic Disorder: No Hx Substance Use: No - SURGICAL HISTORY Hx Musculoskeletal Surgery: Yes (BACK JORDY INSERTION) - ANESTHESIA Hx Anesthesia: Yes Hx Anesthesia Reactions: Yes Hx Malignant Hyperthermia: No Meds Allergies/Adverse Reactions: Allergies Allergy/AdvReac Type Severity Reaction Status Date / Time oxycodone [From Percocet] AdvReac VOMITING Verified 11/24/18 13:41 Physical Exam - Constitutional Appears: Non-toxic, No Acute Distress - Head Exam Head Exam: ATRAUMATIC, NORMOCEPHALIC - Eye Exam Eye Exam: EOMI, PERRL - ENT Exam ENT Exam: Mucous Membranes Moist - Neck Exam Neck exam: Positive for: Full Rom, Normal Inspection - Respiratory Exam Respiratory Exam: Clear to Auscultation Bilateral, NORMAL BREATHING PATTERN. absent: Rales, Rhonchi, Wheezes - Cardiovascular Exam Cardiovascular Exam: REGULAR RHYTHM, RRR, +S1, +S2. absent: Diastolic murmur, Gallop, Rubs, Systolic Murmur - GI/Abdominal Exam GI & Abdominal Exam: Normal Bowel Sounds, Soft. absent: Guarding, Rebound, Tenderness - Extremities Exam Extremities exam: Positive for: joint swelling, pedal edema (significant LLE edema from thigh to foot, LLE significantly warmer to touch and more erythematous compared to RLE, erythema is present through entire LLE from thigh to foot), pedal pulses present. Negative for: calf tenderness, tenderness - Back Exam Back exam: NORMAL INSPECTION - Neurological Exam Neurological exam: Alert, Oriented x3 - Psychiatric Exam Psychiatric exam: Normal Affect, Normal Mood - Skin Skin Exam: Dry, Intact, Warm Results - Vital Signs Recent Vital Signs: Last Vital Signs Temp 98 F 11/24/18 18:07 Pulse 84 11/24/18 18:07 Resp 18 11/24/18 18:07 BP 100/62 11/24/18 18:07 Pulse Ox 96 11/24/18 18:07 - Labs Result Diagrams: 11/24/18 15:25 11/24/18 16:01 Labs: Laboratory Results - last 24 hr 11/24/18 11/24/18 11/24/18 15:25 16:01 16:01 WBC 9.8 RBC 4.83 Hgb 14.6 Hct 42.4 MCV 87.8 MCH 30.2 MCHC 34.4 RDW 14.2 Plt Count 154 MPV 10.2 Neut % (Auto) 91.9 H Lymph % (Auto) 5.[address] [place] % (Auto) 2.2 Eos % (Auto) 0.0 L Baso % (Auto) 0.0 Lymph # (Auto) 0.[address] [place] # (Auto) 0.2 Eos # (Auto) 0.0 Baso # (Auto) 0.00 Absolute Neuts (auto) 8.99 H Neutrophils % (Manual) 90 H Band Neutrophils % 3 H Lymphocytes % (Manual) 5 L Monocytes % (Manual) 2 Platelet Evaluation Normal Anisocytosis (manual) Slight pO2 20 L VBG pH 7.36 VBG pCO2 44.0 VBG HCO3 24.9 VBG Total CO2 26.3 VBG O2 Sat (Calc) 39.5 L VBG Base Excess -0.8 L VBG Potassium 3.6 Sodium 135 136.0 Chloride 102 102.0 Glucose 73 Lactate 2.1 FiO2 21.0 Potassium 3.8 Carbon Dioxide 25 Anion Gap 12 BUN 14 Creatinine 0.6 L Est GFR ( Amer) > 60 Est GFR (Non-Af Amer) > 60 Random Glucose 75 Calcium 9.0 Total Bilirubin 1.0 AST 22 ALT 7 Alkaline Phosphatase 58 Total Protein 7.5 Albumin 4.0 Globulin 3.5 Albumin/Globulin Ratio 1.1 Venous Blood Potassium 3.6 Assessment & Plan - Assessment and Plan (Free Text) Assessment: 58 yo F with PMH of cervical CA (diagnosed in 2011, s/p radiation and chemo, in remission) and chronic LLE lymphedema (2/2 radiation treatment) is admitted for inpatient treatment of LLE cellulitis. Plan: LLE Cellulitis Likely 2/2 chronic LLE lymphedema from prior radiation treatments for cervical CA Patient is febrile with episodes of hypotension on initial presentation with bandemia, prompting call for code sepsis Empiric doses of vanc/zosyn given in ED, will continue IVF resuscitation at 30 cc/kg given in ED Continue IVF resuscitation with NS at 100 cc/hr May give tylenol PRN for pain/fever F/u blood culture results ID consult placed, all recs appreciated Chronic LLE edema Patient states she manages with compression stockings LLE doppler negative for DVT Leave LLE open to air, may elevate as needed Lovenox for DVT ppx DVT/GI PPX: Lovenox/GI ppx not indicated Full Code Regular diet Monitor on med/surg Patient seen, examined with, and plan discussed with my attending Dr. Lorna Bass D.O. IM Resident PGY-1 Pager: [phone] <Chris Rothman - Last Filed: 11/25/18 15:30> Results - Vital Signs Recent Vital Signs: Last Vital Signs Temp 99 F 11/25/18 12:00 Pulse 52 L 11/25/18 12:00 Resp 18 11/25/18 12:00 BP 95/59 L 11/25/18 12:00 Pulse Ox 95 11/24/18 20:02 - Labs Result Diagrams: 11/25/18 05:00 11/25/18 05:00 Labs: Laboratory Results - last 24 hr 11/24/18 11/24/18 11/24/18 15:25 16:01 16:01 WBC 9.8 RBC 4.83 Hgb 14.6 Hct 42.4 MCV 87.8 MCH 30.2 MCHC 34.4 RDW 14.2 Plt Count 154 MPV 10.2 Neut % (Auto) 91.9 H Lymph % (Auto) 5.[address] [place] % (Auto) 2.2 Eos % (Auto) 0.0 L Baso % (Auto) 0.0 Lymph # (Auto) 0.[address] [place] # (Auto) 0.2 Eos # (Auto) 0.0 Baso # (Auto) 0.00 Absolute Neuts (auto) 8.99 H Neutrophils % (Manual) 90 H Band Neutrophils % 3 H Lymphocytes % (Manual) 5 L Monocytes % (Manual) 2 Platelet Evaluation Normal Anisocytosis (manual) Slight pO2 20 L VBG pH 7.36 VBG pCO2 44.0 VBG HCO3 24.9 VBG Total CO2 26.3 VBG O2 Sat (Calc) 39.5 L VBG Base Excess -0.8 L VBG Potassium 3.6 Sodium 135 136.0 Chloride 102 102.0 Glucose 73 Lactate 2.1 FiO2 21.0 Potassium 3.8 Carbon Dioxide 25 Anion Gap 12 BUN 14 Creatinine 0.6 L Est GFR ( Amer) > 60 Est GFR (Non-Af Amer) > 60 Random Glucose 75 Calcium 9.0 Phosphorus Magnesium Total Bilirubin 1.0 AST 22 ALT 7 Alkaline Phosphatase 58 Total Protein 7.5 Albumin 4.0 Globulin 3.5 Albumin/Globulin Ratio 1.1 Venous Blood Potassium 3.6 11/24/18 11/25/18 11/25/18 19:45 05:00 05:00 WBC 7.0 D RBC 4.15 Hgb 12.1 D Hct 36.8 MCV 88.7 MCH 29.2 MCHC 32.9 RDW 13.8 Plt Count 127 MPV 10.2 Neut % (Auto) 89.8 H Lymph % (Auto) 6.[address] [place] % (Auto) 4.0 Eos % (Auto) 0.0 L Baso % (Auto) 0.0 Lymph # (Auto) 0.[address] [place] # (Auto) 0.3 Eos # (Auto) 0.0 Baso # (Auto) 0.00 Absolute Neuts (auto) 6.25 Neutrophils % (Manual) Band Neutrophils % Lymphocytes % (Manual) Monocytes % (Manual) Platelet Evaluation Anisocytosis (manual) pO2 41 VBG pH 7.38 VBG pCO2 37.0 L VBG HCO3 21.9 VBG Total CO2 23.0 VBG O2 Sat (Calc) 82.7 H VBG Base Excess -2.8 L VBG Potassium 2.7 L Sodium 138.0 137 Chloride 108.0 H 108 H Glucose 127 H Lactate 0.9 FiO2 21.0 Potassium 3.1 L Carbon Dioxide 24 Anion Gap 8 L BUN 13 Creatinine 0.5 L Est GFR ( Amer) > 60 Est GFR (Non-Af Amer) > 60 Random Glucose 90 Calcium 8.2 L Phosphorus 1.6 L Magnesium 1.8 Total Bilirubin 0.7 AST 18 ALT 16 Alkaline Phosphatase 55 Total Protein 6.5 Albumin 3.2 Globulin 3.3 Albumin/Globulin Ratio 1.0 L Venous Blood Potassium 2.7 L Attending/Attestation - Attestation I have personally seen and examined this patient.: Yes I have fully participated in the care of the patient.: Yes I have reviewed all pertinent clinical information: Yes Notes (Text): Attending note; Patient seen and examined with resident and ER. Patient is alert and awake. Complaining of left lower extremity swelling/redness and warmth. Patient is a 58 year old female with PMH of cervical CA (diagnosed in 2011, s/p radiation and chemotherapy in remission) and chronic LLE lymphedema (2/2 radiation treatment) who presents to [facility] ED with a complaint of worsening redness and warmth of the LLE. 1. Severe cellulitis of the left lower extremity; started on IV vancomycin and zosyn. 2. Severe sepsis; secondary to cellulitis. Patient had episodes of hypotension and tachycardia. Currently resolved with IV fluids. Monitor closely. Elevated lactic acid. Monitor closely. 3. Chronic lymphedema; secondary to radiation for cervical Cancer. Needs outpatient follow-up. Upon discharge the patient will follow up with PMD Dr. Mishra.
--- NOTE | 2018-11-24 19:04 | PCM.SEPTIC ---
<Jose Manuel Bass - Last Filed: 11/24/18 19:03> Sepsis Progress Note - Reassessment Type Date of Evaluation: 11/24/18 Time of Evaluation: 19:03 Reassessment Type: Non-invasive reassessment - Non Invasive Reassessment Were the most recent vital sign reviewed: Yes Vital Sign (Latest): Temp Pulse Resp BP Pulse Ox 98 F 84 18 100/62 96 11/24/18 18:07 11/24/18 18:07 11/24/18 18:07 11/24/18 18:07 11/24/18 18:07 Cardiovascular: Yes: Regular Rate, Rhythm. No: Gallop, Murmur, Tachycardia Respiratory: Yes: Normal Breath Sounds. No: Rales, Rhonchi, Wheezing Capillary Refill: Normal (Less than 2 sec) Pulses: Normal Radial, Normal Dorsalis Pedis, Normal Posterior Tibialis Skin: Warm, Dry, Other (significant LLE erythema c/w cellulitis, LLE edema) Fluid Challenge performed: Yes <Chris Rothman - Last Filed: 11/25/18 15:30> Sepsis Progress Note - Non Invasive Reassessment Vital Sign (Latest): Temp Pulse Resp BP Pulse Ox 99 F 52 L 18 95/59 L 95 11/25/18 12:00 11/25/18 12:00 11/25/18 12:00 11/25/18 12:00 11/24/18 20:02
[2018-11-24] MEDS: Sodium Chloride 0.9% 1,000 ML IV SCH (19:12)
[2018-11-24 19:57] LABS: VENOUS BLOOD GAS BASE EXCESS -2.8 mmol/L (0.0-2.0); VENOUS BLOOD GAS PO2 41 mm/Hg (30-55); VENOUS BLOOD PH 7.38 (7.32-7.43)
[2018-11-24] MEDS ORDERED: Piperacillin/Tazobact 3.375 gm 100 ML IVPB SCH (22:00)
[2018-11-24 22:22] VITALS: BMI 323.7
[2018-11-24] MEDS ORDERED: Influenza Vaccine 60 mcg/0.5 mL SYR (4YR UP) IM ONE (22:22)
[2018-11-24] MEDS ORDERED: Pneumococcal 23-Valent Vaccine IM ONE (22:22)
[2018-11-25] MEDS: Vancomycin 1gm in NS 250ml 1 GM/250 ML BAG IVPB SCH ×3 (01:08→22:17)
[2018-11-25] MEDS: Sodium Chloride 0.9% 1,000 ML IV SCH ×2 (06:38→15:39)
[2018-11-25] MEDS: Cefepime 1gm in NS 100ml 1 GM/100 ML BAG IVPB SCH ×4 (06:38→22:17)
[2018-11-25 07:13] LABS: HEMOGLOBIN 12.1 g/dL (12.0-16.0); LYMPH # 0.4 (1.2-3.4); LYMPH % 6.2 % (22.0-35.0); MEAN CELL VOLUME 88.7 fl (80.0-105.0); MEAN CORPUSCULAR HEMOGLOBIN 29.2 pg (25.0-35.0); MEAN CORPUSCULAR HGB CONC 32.9 g/dl (31.0-37.0); MEAN PLATELET VOLUME 10.2 fl (7.0-11.0); MONO # 0.3 (0.1-0.6); RBC 4.15 10^6/uL (3.5-6.1); RED CELL DISTRIBUTION WIDTH 13.8 % (11.5-14.5)
--- NOTE | 2018-11-25 07:22 | CP.PCM.PN ---
<Jose Manuel Bass - Last Filed: 11/25/18 13:48> Subjective - Date & Time of Evaluation Date of Evaluation: 11/25/18 Time of Evaluation: 07:20 - Subjective Subjective: Jose Manuel Bass DO, PGY-1 Hospitalist Progress Note for Dr. Rothman Patient was seen and examined at bedside this AM. She reports feeling better thi s AM but is unsure whether the LLE swelling/redness has improved. She otherwise has no new complaints and denies fever/chills, CP, SOB, abd pain/nausea/vomiting, or new urinary complaints. Objective - Vital Signs/Intake and Output Vital Signs (last 24 hours): Temp Pulse Resp BP Pulse Ox 98.6 F 85 18 103/55 L 95 11/24/18 20:02 11/24/18 20:02 11/24/18 22:01 11/24/18 20:02 11/24/18 20:02 Intake and Output: 11/25/18 11/25/18 06:59 18:59 Intake Total 120 Output Total 0 Balance 120 - Medications Medications: Current Medications Acetaminophen (Tylenol 325mg Tab) 650 mg PO Q6H PRN PRN Reason: Pain, moderate (4-7) Enoxaparin Sodium (Lovenox) 40 mg SC DAILY KALPANA; Protocol Sodium Chloride (Sodium Chloride 0.9%) 1,000 mls @ 100 mls/hr IV .Q10H [facility]AL[facility]NA Last Admin: 11/25/18 06:38 Dose: 100 mls/hr Cefepime HCl (Maxipime 1gm) 1 gm in 100 mls @ 25 mls/hr IVPB Q8 KALPANA; Protocol Stop: 12/03/18 06:01 Last Admin: 11/25/18 06:38 Dose: 25 mls/hr Vancomycin HCl (Vancomycin 1gm) 1 gm in 250 mls @ 167 mls/hr IVPB Q12H KALPANA; P rotocol Stop: 12/02/18 22:46 Last Admin: 11/25/18 01:08 Dose: Not Given - Labs Labs: 11/24/18 15:25 11/24/18 16:01 - Constitutional Appears: Non-toxic, No Acute Distress - Head Exam Head Exam: ATRAUMATIC, NORMOCEPHALIC - Eye Exam Eye Exam: EOMI, PERRL - ENT Exam ENT Exam: Mucous Membranes Moist - Neck Exam Neck Exam: Full ROM, Normal Inspection - Respiratory Exam Respiratory Exam: Clear to Ausculation Bilateral, NORMAL BREATHING PATTERN. absent: Rales, Rhonchi, Wheezes - Cardiovascular Exam Cardiovascular Exam: REGULAR RHYTHM, RRR, +S1, +S2. absent: Gallop, Rubs, Murmur - GI/Abdominal Exam GI & Abdominal Exam: Soft, Normal Bowel Sounds. absent: Guarding, Tenderness - Extremities Exam Extremities Exam: Joint Swelling, Pedal Edema (significant LLE edema from thigh to foot, LLE significantly warmer to touch and more erythematous compared to RLE, erythema is present through entire LLE from thigh to foot but improved from yesterday). absent: Calf Tenderness, Tenderness - Back Exam Back Exam: NORMAL INSPECTION - Neurological Exam Neurological Exam: Alert, Awake, Oriented x3 - Psychiatric Exam Psychiatric exam: Normal Affect, Normal Mood - Skin Skin Exam: Dry, Intact, Warm Additional comments: erythema to LLE improved from prior exam Assessment and Plan - Assessment and Plan (Free Text) Assessment: 58 yo F with PMH of cervical CA (diagnosed in 2011, s/p radiation and chemo, in remission) and chronic LLE lymphedema (2/2 radiation treatment) is admitted for inpatient treatment of LLE cellulitis. Plan: LLE Cellulitis Likely 2/2 chronic LLE lymphedema from prior radiation treatments for cervical CA Patient afebrile overnight without additional episodes of tachycardia/hypotension Per ID recs, abx changed to vanc/cefepime Blood cx x 2 pending Continue IVF resuscitation with NS at 100 cc/hr May give tylenol PRN for pain/fever May d/c telemetry ID consult placed, all recs appreciated Chronic LLE edema Patient states she manages lymphedema at home with compression stockings LLE doppler negative for DVT Leave LLE open to air, may elevate as needed Patient states she has not followed up with oncologist or PMD for last 2 years Patient states she would like to have f/u CTAP DVT/GI PPX: Lovenox/GI ppx not indicated Full Code Regular diet Monitor on med/surg Patient seen, examined with, and plan discussed with my attending Dr. Lorna Bass, D.O. IM Resident PGY-1 Pager: [phone] <Chris Rothman - Last Filed: 11/25/18 15:36> Objective - Vital Signs/Intake and Output Vital Signs (last 24 hours): Temp Pulse Resp BP Pulse Ox 99 F 52 L 18 95/59 L 95 11/25/18 12:00 11/25/18 12:00 11/25/18 12:00 11/25/18 12:00 11/24/18 20:02 Intake and Output: 11/25/18 11/25/18 06:59 18:59 Intake Total 120 Output Total 0 Balance 120 - Medications Medications: Current Medications Acetaminophen (Tylenol 325mg Tab) 650 mg PO Q6H PRN PRN Reason: Pain, moderate (4-7) Last Admin: 11/25/18 09:17 Dose: 650 mg Enoxaparin Sodium (Lovenox) 40 mg SC DAILY KALPANA; Protocol Last Admin: 11/25/18 09:18 Dose: 40 mg Sodium Chloride (Sodium Chloride 0.9%) 1,000 mls @ 100 mls/hr IV .Q10H [facility] Last Admin: 11/25/18 06:38 Dose: 100 mls/hr Cefepime HCl (Maxipime 1gm) 1 gm in 100 mls @ 25 mls/hr IVPB Q8 [facility]; Protocol Stop: 12/03/18 06:01 Last Admin: 11/25/18 06:38 Dose: 25 mls/hr Vancomycin HCl (Vancomycin 1gm) 1 gm in 250 mls @ 167 mls/hr IVPB Q12H [facility]; Protocol Stop: 12/02/18 22:46 Last Admin: 11/25/18 09:47 Dose: 167 mls/hr Lactobacillus Acidophilus (Bacid Acidophilus) 1 cap PO BID [facility]NA Last Admin: 11/25/18 11:21 Dose: 1 cap Ondansetron HCl (Zofran Inj) 4 mg IVP Q6H PRN PRN Reason: Nausea/Vomiting - Labs Labs: 11/25/18 05:00 11/25/18 05:00 Attending/Attestation - Attestation I have personally seen and examined this patient.: Yes I have fully participated in the care of the patient.: Yes I have reviewed all pertinent clinical information, including history, physical exam and plan: Yes Notes (Text): 11/25/18 15:32 Attending note; Patient seen and examined with resident. Patient is alert and awake. Complaining of left lower extremity swelling/redness and warmth. Improving slowly. Patient is a 58 year old female with PMH of cervical CA (diagnosed in 2011, s/p radiation and chemotherapy in remission) and chronic LLE lymphedema (2/2 radiation treatment) who presents to [facility] ED with a complaint of worsening redness and warmth of the LLE. 1. Severe cellulitis of the left lower extremity; started on IV vancomycin and cefepime. ID evaluation appreciated. 2. Severe sepsis; secondary to cellulitis. Tachycardia resolved. lactic acid level improved. Monitor closely. 3. Chronic lymphedema; secondary to radiation for cervical Cancer. Needs outpatient follow-up. CT chest abdomen and pelvis ordered. 4. Hypokalemia; continue potassium supplementation. 5.Hypophosphatemia; continue phosphate supplementation. Out of bed to chair as tolerated. Upon discharge the patient will follow up with PMD Dr. Mishra.
[2018-11-25 07:32] LABS: ALBUMIN 3.2 g/dL (3.0-4.8); ALT/SGPT 16 U/L (7-56); AST/SGOT 18 U/L (14-36); BLOOD UREA NITROGEN 13 mg/dL (7-21); CALCIUM 8.2 mg/dL (8.4-10.5); GFR NON-AFRICAN AMERICAN > 60
[2018-11-25] MEDS ORDERED: Potassium Phosphate 15 MMOLE in Sodium Chloride 0.9% 250 ML IVPB ONE (08:46)
[2018-11-25] MEDS ORDERED: Potassium Chloride 20 mEq ER Tab PO STA (08:46)
--- NOTE | 2018-11-25 08:58 | CON ---
DATE OF CONSULTATION: 11/25/2018 The patient is seen earlier today in room 265, bed 2. CHIEF COMPLAINT: Left leg erythema x1 day duration. HISTORY OF PRESENT ILLNESS: This is a 58-year-old female, known to me with previous admissions with obesity with a BMI of 32, history of chronic left lower extremity lymphedema, and hepatitis C, which was treated approximately 1 year ago successfully of an undetectable viral load and sarcoidosis and a history of influenza in 2018, HIV negative, who has had cervical cancer, had chemotherapy and radiation, now admitted with left leg erythema, fevers, and chills. Review of systems reveals the patient has no abdominal pain, diarrhea, or constipation. No dysuria or frequency. REVIEW OF SYSTEMS: Twelve-point review systems performed. PAST MEDICAL HISTORY: Significant for cervical cancer status post chemotherapy and radiation, hepatitis C, scoliosis, history of influenza A in the last year, and hepatitis C. PAST SURGICAL HISTORY: Abdominal lymph node surgery. ALLERGIES: THE PATIENT IS ALLERGIC TO OXYCODONE. MEDICATIONS: Medications at home are noted. PHYSICAL EXAMINATION: GENERAL: The patient is in bed. VITAL SIGNS: Temperature of 100.3, heart rate of 106, respiratory rate of 18, blood pressure is 103/50. HEENT: Examination of HEENT is unremarkable. NECK: Supple. LUNGS: Have decreased breath sounds. HEART: Normal S1, S2. ABDOMEN: Soft, nontender. EXTREMITIES: Examination of the left leg has significant erythema and edema. No break in the skin. No discharge. LABORATORY DATA: Laboratory examination reveals a white count of 9.8 with 3% bands. BUN of 14, creatinine 0.6. ASSESSMENT AND PLAN: A 58-year-old female with left leg cellulitis. We will treat with [facility] isabel. The patient wants to be discharged by tomorrow if the leg erythema resolves, it is behaving like a strep cellulitis, acute onset, maybe able to switch to p.o. antibiotics by tomorrow assuming no workup and cultures negative. Pascual Rice MD
[2018-11-25] MEDS: Enoxaparin 40 mg Syringe SC SCH (09:18)
[2018-11-25] MEDS ORDERED: Vancomycin 1gm in NS 250ml 1 GM/250 ML BAG IVPB SCH (10:00)
[2018-11-25] MEDS ORDERED: Iohexol 350 MG/100 ML VIAL ONE (10:21)
[2018-11-25] MEDS: Lactobacillus Acidophilus 500 MU Cap PO SCH ×2 (11:21→17:13)
[2018-11-25] MEDS ORDERED: Potassium Chloride 20 mEq ER Tab PO ONE (13:00)
--- NOTE | 2018-11-25 14:25 | CT ---
Date of service: 11/25/2018 PROCEDURE: CT Chest, Abdomen and Pelvis with intravenous contrast HISTORY: h/o of uterine cancer, r/o met COMPARISON: None available. TECHNIQUE: IV dose administered: 100 cc of Omni 350 Radiation dose: Total exam DLP = 824.45 mGy-cm. This CT exam was performed using one or more of the following dose reduction techniques: Automated exposure control, adjustment of the mA and/or kV according to patient size, and/or use of iterative reconstruction technique. FINDINGS: CT CHEST WITH CONTRAST: LUNGS: Clear. No nodule, mass or consolidation. MEDIASTINUM: Unremarkable. Normal caliber aorta and pulmonary arterial trunk. No aortic dissection. Normal size heart. LYMPH NODES: Unremarkable. PLEURA: Unremarkable. No pneumothorax. No pleural fluid. BONES: Spinal andres and posterior fusions in the thoracic spine OTHER FINDINGS: None. CT ABDOMEN AND PELVIS: LIVER: Unremarkable. No gross lesion or ductal dilatation. Two small hypodense lesions are seen in the right lobe of the liver. These are too small to characterize. GALLBLADDER AND BILE DUCTS: Unremarkable. PANCREAS: Unremarkable. No gross lesion or ductal dilatation. SPLEEN: Unremarkable. ADRENALS: Unremarkable. No mass. KIDNEYS AND URETERS: Unremarkable. No hydronephrosis. No solid mass. VASCULATURE: No aortic atherosclerotic calcification or mural plaque present. Unremarkable. No aortic aneurysm. BOWEL: Unremarkable. No obstruction. No gross mural thickening. Moderate constipation APPENDIX: Normal appendix. PERITONEUM: Minimal ascites LYMPH NODES: Unremarkable. No enlarged lymph nodes. BLADDER: Unremarkable. REPRODUCTIVE: Unremarkable. BONES: No acute fracture. OTHER FINDINGS: None. IMPRESSION: Small hypodense lesions in the right lobe of the liver too small to characterize.. Minimal ascites. No definite evidence of metastatic disease
--- NOTE | 2018-11-25 15:43 | CARD ---
APPROVED REPORT Date of service: 11/24/2018 EKG Measurement Heart [id number] <Conclusion> Normal sinus rhythm Possible Left atrial enlargement Nonspecific ST-T changes Abnormal ECG
[2018-11-26 01:33] VITALS: RESP 20
[2018-11-26] MEDS: Cefepime 1gm in NS 100ml 1 GM/100 ML BAG IVPB SCH (06:45)
[2018-11-26 07:26] LABS: EOS % 0.2 % (1.5-5.0); HEMOGLOBIN 10.5 g/dL (12.0-16.0); LYMPH # 0.5 (1.2-3.4); LYMPH % 11.4 % (22.0-35.0); MEAN CORPUSCULAR HEMOGLOBIN 28.8 pg (25.0-35.0); MEAN CORPUSCULAR HGB CONC 32.4 g/dl (31.0-37.0); MEAN PLATELET VOLUME 10.7 fl (7.0-11.0); MONO # 0.4 (0.1-0.6); MONO % 8.2 % (1.0-6.0); RBC 3.64 10^6/uL (3.5-6.1); RED CELL DISTRIBUTION WIDTH 13.9 % (11.5-14.5); WHITE BLOOD COUNT 4.5 10^3/uL (4.5-11.0)
[2018-11-26 07:45] LABS: ALB/GLOB RATIO 0.9 (1.1-1.8); ALBUMIN 2.8 g/dL (3.0-4.8); ALT/SGPT 12 U/L (7-56); AST/SGOT 16 U/L (14-36); BLOOD UREA NITROGEN 7 mg/dL (7-21); GFR NON-AFRICAN AMERICAN > 60
[2018-11-26] MEDS ORDERED: Potassium Chloride 20 mEq ER Tab PO ONE ×2 (07:51→10:15)
[2018-11-26 08:54] VITALS: BP 102/60; PULSE 80; TEMP 98.3; O2SAT 95
[2018-11-26] MEDS: Lactobacillus Acidophilus 500 MU Cap PO SCH (10:06)
[2018-11-26] MEDS: Enoxaparin 40 mg Syringe SC SCH (10:06)
--- NOTE | 2018-11-26 13:44 | CP.PCM.PN ---
Subjective - Date & Time of Evaluation Date of Evaluation: 11/26/18 Time of Evaluation: 07:00 - Subjective Subjective: Jose Manuel Bass DO, PGY-1 Hospitalist Discharge Summary for Dr. Rothman Prior to admission: Objective - Vital Signs/Intake and Output Vital Signs (last 24 hours): Temp Pulse Resp BP Pulse Ox 98.3 F 80 20 102/60 95 11/26/18 06:00 11/26/18 06:00 11/26/18 06:00 11/26/18 06:00 11/26/18 06:00 Intake and Output: 11/26/18 11/26/18 06:59 18:59 Intake Total 2570 Output Total 4 Balance 2566 - Labs Labs: 11/26/18 07:00 11/26/18 07:00
--- NOTE | 2018-11-26 13:49 | CP.PCM.DIS ---
<Jose Manuel Bass - Last Filed: 11/26/18 13:49> Provider - Provider Date of Admission: 11/24/18 17:44 Attending physician: Chris Rothman MD Primary care physician: Arias Mishra MD Consults: 11/24/18 18:31 Infectious Disease Consult Routine Comment: Consulting Provider: Bernardo Snow Consulting Physician: Bernardo Snow Reason for Consult: LLE cellulitis, abx recs Time Spent in preparation of Discharge (in minutes): 40 Diagnosis - Discharge Diagnosis (1) Bandemia Status: Resolved (2) Cellulitis Status: Resolved (3) Sepsis Status: Resolved Hospital Course - Lab Results Lab Results: Micro Results 11/24/18 15:15 Blood Blood Culture - Preliminary NO GROWTH AFTER 24 HOURS 11/24/18 15:27 Blood Blood Culture - Preliminary NO GROWTH AFTER 24 HOURS Most Recent Lab Values WBC 4.5 10^3/uL (4.5-11.0) D 11/26/18 07:00 RBC 3.64 10^6/uL (3.5-6.1) 11/26/18 07:00 Hgb 10.5 g/dL (12.0-16.0) L 11/26/18 07:00 Hct 32.4 % (36.0-48.0) L 11/26/18 07:00 MCV 89.0 fl (80.0-105.0) 11/26/18 07:00 MCH 28.8 pg (25.0-35.0) 11/26/18 07:00 MCHC 32.4 g/dl (31.0-37.0) 11/26/18 07:00 RDW 13.9 % (11.5-14.5) 11/26/18 07:00 Plt Count 124 10^3/uL (120.0-450.0) 11/26/18 07:00 MPV 10.7 fl (7.0-11.0) 11/26/18 07:00 Neut % (Auto) 80.2 % (50.0-68.0) H 11/26/18 07:00 Lymph % (Auto) 11.4 % (22.0-35.0) L 11/26/18 07:00 [place] % (Auto) 8.2 % (1.0-6.0) H 11/26/18 07:00 Eos % (Auto) 0.2 % (1.5-5.0) L 11/26/18 07:00 Baso % (Auto) 0.0 % (0.0-3.0) 11/26/18 07:00 Lymph # (Auto) 0.5 (1.2-3.4) L 11/26/18 07:00 [place] # (Auto) 0.4 (0.1-0.6) 11/26/18 07:00 Eos # (Auto) 0.0 (0.0-0.7) 11/26/18 07:00 Baso # (Auto) 0.00 K/mm3 (0.0-2.0) 11/26/18 07:00 Absolute Neuts (auto) 3.60 (1.4-6.5) 11/26/18 07:00 Neutrophils % (Manual) 90 % (50.0-70.0) H 11/24/18 15:25 Band Neutrophils % 3 % (0-2) H 11/24/18 15:25 Lymphocytes % (Manual) 5 % (22.0-35.0) L 11/24/18 15:25 Monocytes % (Manual) 2 % (1.0-6.0) 11/24/18 15:25 Platelet Evaluation Normal (NORMAL) 11/24/18 15:25 Anisocytosis (manual) Slight 11/24/18 15:25 pO2 41 mm/Hg (30-55) 11/24/18 19:45 VBG pH 7.38 (7.32-7.43) 11/24/18 19:45 VBG pCO2 37.0 (40-60) L 11/24/18 19:45 VBG HCO3 21.9 mmol/l (21-28) 11/24/18 19:45 VBG Total CO2 23.0 mmol.L (22-28) 11/24/18 19:45 VBG O2 Sat (Calc) 82.7 % (40-65) H 11/24/18 19:45 VBG Base Excess -2.8 mmol/L (0.0-2.0) L 11/24/18 19:45 VBG Potassium 2.7 mmol/L (3.6-5.2) L 11/24/18 19:45 Sodium 138.0 mmol/L (132-148) 11/24/18 19:45 Chloride 108.0 mmol/L (98-107) H 11/24/18 19:45 Glucose 127 mg/dl (65-105) H 11/24/18 19:45 Lactate 0.9 mmol/L (0.7-2.1) 11/24/18 19:45 FiO2 21.0 % 11/24/18 19:45 Sodium 139 mmol/L (132-148) 11/26/18 07:00 Potassium 3.5 mmol/L (3.6-5.0) L 11/26/18 07:00 Chloride 112 mmol/L (98-107) H 11/26/18 07:00 Carbon Dioxide 23 mmol/L (21-33) 11/26/18 07:00 Anion Gap 7 (10-20) L 11/26/18 07:00 BUN 7 mg/dL (7-21) 11/26/18 07:00 Creatinine 0.5 mg/dl (0.7-1.2) L 11/26/18 07:00 Est GFR ( Amer) > 60 11/26/18 07:00 Est GFR (Non-Af Amer) > 60 11/26/18 07:00 Random Glucose 82 mg/dL (70-110) 11/26/18 07:00 Calcium 8.0 mg/dL (8.4-10.5) L 11/26/18 07:00 Phosphorus 1.6 mg/dL (2.5-4.5) L 11/25/18 05:00 Magnesium 1.9 mg/dL (1.7-2.2) 11/26/18 07:00 Total Bilirubin 0.4 mg/dL (0.2-1.3) 11/26/18 07:00 AST 16 U/L (14-36) 11/26/18 07:00 ALT 12 U/L (7-56) 11/26/18 07:00 Alkaline Phosphatase 54 U/L (38-126) 11/26/18 07:00 Total Protein 5.8 g/dL (5.8-8.3) 11/26/18 07:00 Albumin 2.8 g/dL (3.0-4.8) L 11/26/18 07:00 Globulin 3.0 gm/dL 11/26/18 07:00 Albumin/Globulin Ratio 0.9 (1.1-1.8) L 11/26/18 07:00 Venous Blood Potassium 2.7 mmol/L (3.6-5.2) L 11/24/18 19:45 - Hospital Course Hospital Course: Jose Manuel Bass DO, PGY-1 Hospitalist Discharge Summary for Dr. Rothman Prior to admission: Pedro is a pleasant 58 year old female with PMH of cervical CA (diagnosed in 2011, s/p radiation and chemo, in remission) and chronic LLE lymphedema (2/2 radiation treatment) who presented to [facility] ED with a complaint of worsening redness and warmth of the LLE. She admitted to having prior episodes of cellulitis of the LLE, most recently in 2016 when she was treated at [facility]. She reported the symptoms had been worsening over the past week and it had been more difficult to ambulate. She admitted to subjective fever and chills at home the day prior to admission. In ED, she was febrile with Tmax 100.3, was tachycardic, and had episodes of hypotension prompting call for code sepsis. She was bolused 30 cc/kg IVF initially in ED per protocol. She was subsequently admitted to IV abx and treatment of LLE cellulitis. Hospitalization course: Patient received 3 days of broad spectrum vanc and cefepime. Each day she continued to improve, with improvement of the LLE erythema, warmth, and resolution of fever/tachycardia. She was evaluated by ID who recommended patient be continued on vanc/cefepime and discharged on PO augmentin and doxycycline. Patient was given prescriptions which were delivered to bedside prior to discharge. Patient also requested CTAP be completed during her admission as she had not had outpatient f/u of cervical cancer for the past two years. There were no acute findings on CTAP and patient was instructed to f/u with her PMD as below. Discharge plan was discussed with patient in detail. All questions were answered. Patient seen, examined, and discharge plan discussed with my attending Dr. Lorna Bass, [place]. IM Resident PGY-1 Discharge Exam - Head Exam Head Exam: ATRAUMATIC, NORMOCEPHALIC Discharge Plan - Discharge Medications Prescriptions: Amoxicillin/Clavulanate [Augmentin 875 MG-125 MG] 1 tab PO Q12 7 Days #17 tab Doxycycline Hyclate 100 mg PO Q12 7 Days #14 capsule - Follow Up Plan Condition: FAIR Disposition: HOME/ ROUTINE Instructions: Cellulitis (DC), Cellulitis (GEN) Additional Instructions: Please follow up with your primary medical doctor within one week of discharge. We have given you an antibiotic to take: doxycycline 100 mg bid and augmentin 1 tab bid for 7 days Please follow up with an oncologist as we discussed. If any of your symptoms return or worsen, please return to nearest emergency department. Referrals: Arias Mishra MD [Primary Care Provider] - <Chris Rothman - Last Filed: 11/26/18 15:29> Provider - Provider Date of Admission: 11/24/18 17:44 Attending physician: Chris Rothman MD Primary care physician: Arias Mishra MD Consults: 11/24/18 18:31 Infectious Disease Consult Routine Comment: Consulting Provider: Bernardo Snow Consulting Physician: Bernardo Snow Reason for Consult: LLE cellulitis, abx recs Hospital Course - Lab Results Lab Results: Micro Results 11/24/18 15:15 Blood Blood Culture - Preliminary NO GROWTH AFTER 24 HOURS 11/24/18 15:27 Blood Blood Culture - Preliminary NO GROWTH AFTER 24 HOURS Most Recent Lab Values WBC 4.5 10^3/uL (4.5-11.0) D 11/26/18 07:00 RBC 3.64 10^6/uL (3.5-6.1) 11/26/18 07:00 Hgb 10.5 g/dL (12.0-16.0) L 11/26/18 07:00 Hct 32.4 % (36.0-48.0) L 11/26/18 07:00 MCV 89.0 fl (80.0-105.0) 11/26/18 07:00 MCH 28.8 pg (25.0-35.0) 11/26/18 07:00 MCHC 32.4 g/dl (31.0-37.0) 11/26/18 07:00 RDW 13.9 % (11.5-14.5) 11/26/18 07:00 Plt Count 124 10^3/uL (120.0-450.0) 11/26/18 07:00 MPV 10.7 fl (7.0-11.0) 11/26/18 07:00 Neut % (Auto) 80.2 % (50.0-68.0) H 11/26/18 07:00 Lymph % (Auto) 11.4 % (22.0-35.0) L 11/26/18 07:00 [place] % (Auto) 8.2 % (1.0-6.0) H 11/26/18 07:00 Eos % (Auto) 0.2 % (1.5-5.0) L 11/26/18 07:00 Baso % (Auto) 0.0 % (0.0-3.0) 11/26/18 07:00 Lymph # (Auto) 0.5 (1.2-3.4) L 11/26/18 07:00 [place] # (Auto) 0.4 (0.1-0.6) 11/26/18 07:00 Eos # (Auto) 0.0 (0.0-0.7) 11/26/18 07:00 Baso # (Auto) 0.00 K/mm3 (0.0-2.0) 11/26/18 07:00 Absolute Neuts (auto) 3.60 (1.4-6.5) 11/26/18 07:00 Neutrophils % (Manual) 90 % (50.0-70.0) H 11/24/18 15:25 Band Neutrophils % 3 % (0-2) H 11/24/18 15:25 Lymphocytes % (Manual) 5 % (22.0-35.0) L 11/24/18 15:25 Monocytes % (Manual) 2 % (1.0-6.0) 11/24/18 15:25 Platelet Evaluation Normal (NORMAL) 11/24/18 15:25 Anisocytosis (manual) Slight 11/24/18 15:25 pO2 41 mm/Hg (30-55) 11/24/18 19:45 VBG pH 7.38 (7.32-7.43) 11/24/18 19:45 VBG pCO2 37.0 (40-60) L 11/24/18 19:45 VBG HCO3 21.9 mmol/l (21-28) 11/24/18 19:45 VBG Total CO2 23.0 mmol.L (22-28) 11/24/18 19:45 VBG O2 Sat (Calc) 82.7 % (40-65) H 11/24/18 19:45 VBG Base Excess -2.8 mmol/L (0.0-2.0) L 11/24/18 19:45 VBG Potassium 2.7 mmol/L (3.6-5.2) L 11/24/18 19:45 Sodium 138.0 mmol/L (132-148) 11/24/18 19:45 Chloride 108.0 mmol/L (98-107) H 11/24/18 19:45 Glucose 127 mg/dl (65-105) H 11/24/18 19:45 Lactate 0.9 mmol/L (0.7-2.1) 11/24/18 19:45 FiO2 21.0 % 11/24/18 19:45 Sodium 139 mmol/L (132-148) 11/26/18 07:00 Potassium 3.5 mmol/L (3.6-5.0) L 11/26/18 07:00 Chloride 112 mmol/L (98-107) H 11/26/18 07:00 Carbon Dioxide 23 mmol/L (21-33) 11/26/18 07:00 Anion Gap 7 (10-20) L 11/26/18 07:00 BUN 7 mg/dL (7-21) 11/26/18 07:00 Creatinine 0.5 mg/dl (0.7-1.2) L 11/26/18 07:00 Est GFR ( Amer) > 60 11/26/18 07:00 Est GFR (Non-Af Amer) > 60 11/26/18 07:00 Random Glucose 82 mg/dL (70-110) 11/26/18 07:00 Calcium 8.0 mg/dL (8.4-10.5) L 11/26/18 07:00 Phosphorus 1.6 mg/dL (2.5-4.5) L 11/25/18 05:00 Magnesium 1.9 mg/dL (1.7-2.2) 11/26/18 07:00 Total Bilirubin 0.4 mg/dL (0.2-1.3) 11/26/18 07:00 AST 16 U/L (14-36) 11/26/18 07:00 ALT 12 U/L (7-56) 11/26/18 07:00 Alkaline Phosphatase 54 U/L (38-126) 11/26/18 07:00 Total Protein 5.8 g/dL (5.8-8.3) 11/26/18 07:00 Albumin 2.8 g/dL (3.0-4.8) L 11/26/18 07:00 Globulin 3.0 gm/dL 11/26/18 07:00 Albumin/Globulin Ratio 0.9 (1.1-1.8) L 11/26/18 07:00 Venous Blood Potassium 2.7 mmol/L (3.6-5.2) L 11/24/18 19:45 Attending/Attestation - Attestation I have personally seen and examined this patient.: Yes I have fully participated in the care of the patient.: Yes I have reviewed all pertinent clinical information, including history, physical exam and plan: Yes Notes (Text): 11/26/18 15:26 Attending note; Patient seen and examined with resident. Patient is alert and awake. left lower extremity swelling/redness and warmth improved. denies any fever, chills. Patient is a 58 year old female with PMH of cervical CA (diagnosed in 2011, s/p radiation and chemotherapy in remission) and chronic LLE lymphedema (2/2 radiation treatment) who presents to [facility] ED with a complaint of worsening redness and warmth of the LLE. 1. Severe cellulitis of the left lower extremity; resolving. Treated with IV vancomycin and cefepime. ID evaluation appreciated. Discharge home with Augmentin and doxycycline. 2. Severe sepsis; secondary to cellulitis. Tachycardia resolved. resolved. 3. Chronic lymphedema; secondary to radiation for cervical Cancer. Needs outpatient follow-up. CT chest abdomen and pelvis showed minimal ascites. no metastatic disease. Discharge home today. Upon discharge the patient will follow up with PMD Dr. Mishra. 11/26/18 15:28
--- NOTE | 2018-11-26 16:28 | PN ---
DATE: 11/26/2018 SUBJECTIVE: The patient is in bed in no acute distress, nontoxic. PHYSICAL EXAMINATION: VITAL SIGNS: Temperature is 98, blood pressure is 100/60, respiratory rate of 20, heart rate of 93. HEENT: Examination of HEENT is unremarkable. NECK: Supple. LUNGS: Have decreased breath sounds. HEART: Normal S1 and S2. ABDOMEN: Soft. LABORATORY DATA: Laboratory examination reveals a white count of 4.5, hemoglobin of 10, platelets of 124. Chemistries are noted. BUN of 7, creatinine 0.7. On examination of the leg, it is somewhat improved, although still significant finding is present. The patient had a CAT scan of the chest and CAT scan of the abdomen and pelvis, and the results are reviewed. The lungs are clear. Abdomen is unremarkable. ASSESSMENT AND PLAN: This is a 58-year-old female with chronic lymphedema of the left extremity, hepatitis C which was treated approximately 1 year ago successfully with a hep C undetectable viral load and history of sarcoidosis, history of influenza in last year 2018, now admitted with a left leg cellulitis and fever. The patient insist of being discharged today, she has personal business, although the leg is not quite resolved, an option would be Augmentin and doxycycline discharge with close followup as outpatient. Pascual Rice MD
== END 2018-11-26 11:57 | disposition home or self-care (01) | DRG 901 ==
LOC: ED 13:39 → ERH 17:44 → 2RNO 21:31
PROVIDERS: ADMIT Internal Medicine; ATTEND Internal Medicine
DX: A41.9 Sepsis, unspecified organism (principal); L03.116 Cellulitis of left lower limb; E87.6 Hypokalemia; R65.20 Severe sepsis without septic shock; I89.0 Lymphedema, not elsewhere classified; E83.39 Other disorders of phosphorus metabolism; Z87.891 Personal history of nicotine dependence; Z85.41 Personal history of malignant neoplasm of cervix uteri; Z92.21 Personal history of antineoplastic chemotherapy; Z92.3 Personal history of irradiation; Z86.19 Personal history of other infectious and parasitic diseases